=== PATIENT | female | born 1960 | race Caucasian/White ===

== ENCOUNTER 2017-08-14 13:48 | Outpatient (RCR) | payer MEDICAID ==
[~2017-08-14 13:48] MED LIST: CYCL10TA9 PO; DICY10CA26 PO; IBUP800T26 PO; MECL25TA56 PO; NAPR-243 PO; NAPR-915 PO; OXYC-12 PO; PNT40TEC PO; RNT150T PO
[2017-08-14 15:21] LABS: BASOPHILS % (AUTO) 0 % (0-10); EOSINOPHILS # (AUTO) 0.2 10^3/uL (0.0-0.3); EOSINOPHILS % (AUTO) 3 % (0-10); HEMATOCRIT 45 % (35-52); HEMOGLOBIN 14.7 G/DL (11.5-16.0); LYMPHOCYTES # (AUTO) 2.2 X 10^3 (1.0-4.0); LYMPHOCYTES % (AUTO) 25 % (12-44); MEAN CORPUSCULAR HEMOGLOBIN 31 PG (25-34); MEAN CORPUSCULAR HGB CONC 33 G/DL (32-36); MEAN CORPUSCULAR VOLUME 92 FL (80-99); MEAN PLATELET VOLUME 9.8 FL (7.4-10.4); MONOCYTES # (AUTO) 0.7 X 10^3 (0.0-1.0); MONOCYTES % (AUTO) 8 % (0-12); NEUTROPHILS # (AUTO) 5.7 X 10^3 (1.8-7.8); NEUTROPHILS % (AUTO) 65 % (42-75); PLATELET COUNT 313 10^3/uL (130-400); RED BLOOD COUNT 4.82 10^6/uL (4.35-5.85); RED CELL DISTRIBUTION WIDTH 12.9 % (10.0-14.5); WHITE BLOOD COUNT 8.8 10^3/uL (4.3-11.0)
[2017-08-14 15:41] LABS: ALANINE AMINOTRANSFERASE 74 U/L (0-55); ALBUMIN 4.2 GM/DL (3.2-4.5); ALKALINE PHOSPHATASE 102 U/L (40-136); BILIRUBIN,TOTAL 0.4 MG/DL (0.1-1.0); BUN/CREATININE RATIO 18; CALCIUM 8.9 MG/DL (8.5-10.1); CARBON DIOXIDE 27 MMOL/L (21-32); CHLORIDE 105 MMOL/L (98-107); CREATININE SERUM 0.88 MG/DL (0.60-1.30); GFR ESTIMATED > 60; GLUCOSE 127 MG/DL (70-105); POTASSIUM 4.1 MMOL/L (3.6-5.0); SODIUM 141 MMOL/L (135-145); TOTAL PROTEIN 7.5 GM/DL (6.4-8.2)
== END 2017-11-12 | disposition home or self-care (01) ==
LOC: ONC 13:48
PROVIDERS: ATTEND Internal Medicine Hematology & Oncology
DX: Z08 Encounter for follow-up examination after completed treatment for malignant neoplasm (principal); Z85.43 Personal history of malignant neoplasm of ovary; Z85.048 Personal history of other malignant neoplasm of rectum, rectosigmoid junction, and anus; R10.84 Generalized abdominal pain; N18.3 Chronic kidney disease, stage 3 (moderate); K21.9 Gastro-esophageal reflux disease without esophagitis; K44.9 Diaphragmatic hernia without obstruction or gangrene; K75.81 Nonalcoholic steatohepatitis (NASH); K43.9 Ventral hernia without obstruction or gangrene; Z90.710 Acquired absence of both cervix and uterus; Z79.82 Long term (current) use of aspirin; Z79.899 Other long term (current) drug therapy
CPT/HCPCS: 36415; 80053; 85025; 86304; 99213

== ENCOUNTER → 2019-03-22 | Outpatient (CLI) | payer MEDICAID ==
[~2019-03-22] MED LIST changes: +CATHETER FLUSH 10 ML SYR IV PRN; +HOLD METFORMIN - RECEIVED CONTRAST 20 ML VIAL IV SCH; +IOHEXOL 350 MG/ML 100 ML (OMNIPAQUE 350) VIAL IV ONE; +NS 100 ML (IVPB) BAG IV ONE
--- NOTE | 2019-03-22 14:32 | Diagnostic Imaging Report ---
PROCEDURE: CT angiography of the chest with contrast. TECHNIQUE: Multiple contiguous axial images were obtained through the chest after uneventful bolus administration of intravenous contrast. 3D reconstructed CTA MIP acquisitions were also performed. Auto Exposure Controls were utilized during the CT exam to meet ALARA standards for radiation dose reduction. INDICATION: Rectal and ovarian cancer. FINDINGS: The previous CT chest, abdomen, and pelvis exam of 08/18/2017 failed to show any sign of metastatic disease or of an acute abnormality. The images through the thorax on this exam show that the heart is enlarged and that there are sparse coronary artery calcifications evident. The heart does seem stable when compared to the prior exam. The aorta is not abnormally dilated, and there is no sign of a dissection. There is no defect within the pulmonary arteries to indicate a pulmonary embolus. The mild atelectasis involving each lung base seen previously is again evident and no different. The lungs are generally clear. There is no sign of failure, pneumonia, or of a pleural effusion to indicate an acute abnormality. There is no parenchymal lung mass identified either. There is no mediastinal or hilar adenopathy. The thyroid gland is generally unremarkable. There is no obvious breast mass. The images through the abdomen show that the liver is enlarged and of lower density than usually seen. This does suggest fatty metamorphosis. The liver does seem stable when compared to the prior exam. However, it should be noted that the inferior half of the right lobe of the liver is not included on this exam. There is no acute abnormality of the upper abdomen. The bone windows show no evidence for a fracture or for a destructive lesion. IMPRESSION: 1. There is cardiomegaly and mild bibasilar atelectasis/infiltrate. These findings are similar to the prior exam. There is no evidence for an acute cardiopulmonary abnormality. In particular, there is no sign of a pulmonary embolus or of a dissection. 2. There is no evidence for neoplastic disease. Dictated by: Dictated on workstation # [id number]
== END ==
LOC: RAD 13:06
PROVIDERS: ATTEND Nurse Practitioner Family
DX: I51.7 Cardiomegaly (principal); J98.11 Atelectasis; R91.8 Other nonspecific abnormal finding of lung field
CPT/HCPCS: 71275

== ENCOUNTER → 2019-06-01 | Outpatient (CLI) | payer MEDICAID ==
[~2019-06-01] MED LIST changes: -CATHETER FLUSH 10 ML SYR IV PRN; -HOLD METFORMIN - RECEIVED CONTRAST 20 ML VIAL IV SCH; -IOHEXOL 350 MG/ML 100 ML (OMNIPAQUE 350) VIAL IV ONE; -NS 100 ML (IVPB) BAG IV ONE
== END ==
LOC: CARD 12:06
PROVIDERS: ATTEND Nurse Practitioner Family
DX: I42.9 Cardiomyopathy, unspecified (principal)
CPT/HCPCS: 93306

== ENCOUNTER 2019-06-17 10:40 | Outpatient (RCR) | payer MEDICAID ==
[2019-06-17 11:25] LABS: BASOPHILS % (AUTO) 1 % (0-10); EOSINOPHILS # (AUTO) 0.2 10^3/uL (0.0-0.3); EOSINOPHILS % (AUTO) 3 % (0-10); HEMATOCRIT 44 % (35-52); HEMOGLOBIN 14.4 G/DL (11.5-16.0); LYMPHOCYTES # (AUTO) 1.8 X 10^3 (1.0-4.0); LYMPHOCYTES % (AUTO) 25 % (12-44); MEAN CORPUSCULAR HEMOGLOBIN 30 PG (25-34); MEAN CORPUSCULAR HGB CONC 33 G/DL (32-36); MEAN CORPUSCULAR VOLUME 90 FL (80-99); MEAN PLATELET VOLUME 9.8 FL (7.4-10.4); MONOCYTES # (AUTO) 0.5 X 10^3 (0.0-1.0); MONOCYTES % (AUTO) 7 % (0-12); NEUTROPHILS # (AUTO) 4.8 X 10^3 (1.8-7.8); NEUTROPHILS % (AUTO) 65 % (42-75); PLATELET COUNT 276 10^3/uL (130-400); RED CELL DISTRIBUTION WIDTH 12.7 % (10.0-14.5); WHITE BLOOD COUNT 7.4 10^3/uL (4.3-11.0)
[2019-06-17 11:49] LABS: ALANINE AMINOTRANSFERASE 105 U/L (0-55); ALBUMIN 4.2 GM/DL (3.2-4.5); ALKALINE PHOSPHATASE 112 U/L (40-136); BILIRUBIN,TOTAL 0.6 MG/DL (0.1-1.0); BUN/CREATININE RATIO 16; CALCIUM 8.9 MG/DL (8.5-10.1); CARBON DIOXIDE 21 MMOL/L (21-32); CHLORIDE 102 MMOL/L (98-107); CREATININE SERUM 0.88 MG/DL (0.60-1.30); GFR ESTIMATED > 60; GLUCOSE 245 MG/DL (70-105); POTASSIUM 4.3 MMOL/L (3.6-5.0); SODIUM 135 MMOL/L (135-145); TOTAL PROTEIN 7.7 GM/DL (6.4-8.2)
== END 2019-09-15 | disposition home or self-care (01) ==
LOC: ONC 10:40
PROVIDERS: ATTEND Internal Medicine Hematology & Oncology
DX: Z08 Encounter for follow-up examination after completed treatment for malignant neoplasm (principal); Z85.43 Personal history of malignant neoplasm of ovary; Z85.048 Personal history of other malignant neoplasm of rectum, rectosigmoid junction, and anus; N18.3 Chronic kidney disease, stage 3 (moderate); R10.9 Unspecified abdominal pain; K21.9 Gastro-esophageal reflux disease without esophagitis; K43.9 Ventral hernia without obstruction or gangrene; Z79.899 Other long term (current) drug therapy
CPT/HCPCS: 80053; 85025; 86304; 99213

== ENCOUNTER → 2019-06-30 | Outpatient (CLI) | payer MEDICAID ==
--- NOTE | 2019-06-30 10:58 | Diagnostic Imaging Report ---
EXAMINATION: Magnetic resonance imaging of the left knee without intravenous contrast DATE: June 30, 2019. COMPARISON: None. INDICATION: 59-year-old female, left knee pain. Injury in March 2019. TECHNIQUE: Multiplanar, multisequence non contrast enhanced MR imaging was accomplished. FINDINGS: MENISCI: The medial meniscus is intact. The lateral meniscus is intact. LIGAMENTS AND TENDONS: The anterior and posterior cruciate ligaments are intact. There is an high-grade partial tear involving the superficial component of the medial collateral ligament complex. The meniscotibial ligament is intact. The femoral attachment site of the meniscofemoral ligament is not well seen and likely is torn. The iliotibial band, mid third lateral capsular ligament, fibular collateral ligament, biceps femoris tendon and conjoined tendon are intact. The quadriceps tendon and patella ligament are intact. JOINT: The articular cartilage surfaces are intact. There is no knee joint effusion, prominent synovitis, or intra-articular body. BONE: There is unremarkable bone marrow signal. Specifically, negative for fracture, osteomyelitis, osteonecrosis, or marrow replacing process. BURSAE AND SOFT TISSUES: There is no Olguin's cyst. There is nonspecific prepatellar subcutaneous edema. IMPRESSION: 1. Intact menisci and cruciate ligaments. 2. High-grade partial tear involving the superficial component of the medial collateral ligament complex. Probable tear involving the femoral attachment site of the meniscofemoral ligament. 3. No acute fracture or bone contusion. 4. Intact articular cartilage. No knee joint effusion. Dictated by: Dictated on workstation # [id number]
== END ==
LOC: RAD 09:42
PROVIDERS: ATTEND Nurse Practitioner Family
DX: S83.412A Sprain of medial collateral ligament of left knee, initial encounter (principal); R29.6 Repeated falls
CPT/HCPCS: 73721

== ENCOUNTER 2020-04-22 16:28 | Emergency (ER) | payer MEDICAID ==
[~2020-04-22] VITALS: Ht 167 cm; Wt 113.0 kg
[2020-04-22] MEDS ORDERED: ONDANSETRON 4 MG/2 ML (SDV) Z0FRAN ONE (16:40)
[2020-04-22] MEDS: LORazepam INJ 2 MG/ML (ATIVAN) VIAL IVP PRN ×2 (16:50→18:40)
[2020-04-22] MEDS ORDERED: cloNIDine 0.1 MG (CATAPRES) TAB ONE (16:52)
[2020-04-22] MEDS ORDERED: OXYMETAZOLINE (AFRIN) 0.05% NA 30 ML BTL ONE (16:52)
[2020-04-22 16:53] LABS: BASOPHILS # (AUTO) 0.1 10^3/uL (0.0-0.1); BASOPHILS % (AUTO) 0 % (0-10); EOSINOPHILS # (AUTO) 0.2 10^3/uL (0.0-0.3); EOSINOPHILS % (AUTO) 2 % (0-10); HEMATOCRIT 41 % (35-52); HEMOGLOBIN 13.1 g/dL (11.5-16.0); LYMPHOCYTES # (AUTO) 2.8 X 10^3 (1.0-4.0); LYMPHOCYTES % (AUTO) 25 % (12-44); MEAN CORPUSCULAR HEMOGLOBIN 30 pg (25-34); MEAN CORPUSCULAR HGB CONC 32 g/dL (32-36); MEAN CORPUSCULAR VOLUME 92 fL (80-99); MEAN PLATELET VOLUME 9.7 fL (9.0-12.2); MONOCYTES # (AUTO) 0.9 X 10^3 (0.0-1.0); MONOCYTES % (AUTO) 8 % (0-12); NEUTROPHILS # (AUTO) 7.2 X 10^3 (1.8-7.8); NEUTROPHILS % (AUTO) 65 % (42-75); PLATELET COUNT 335 10^3/uL (130-400); WHITE BLOOD COUNT 11.2 10^3/uL (4.3-11.0)
--- NOTE | 2020-04-22 17:05 | ED EENT ---
History of Present Illness General Chief Complaint: Nasal Problems Stated Complaint: NOSEBLEED Nursing Triage Note: C/O NOSE BLEED X 1 HOUR Source: patient Exam Limitations: no limitations History of Present Illness Date Seen by Provider: Apr 22, 2020 Time Seen by Provider: 16:57 Initial Comments ER with right-sided nosebleed for 1 hour. She has never had these before her first episode last week. At that time she was seen at [facility]. No anticoagulation. No recent illness. Timing/Duration: other Severity: severe Location: nose Prearrival Treatment: no prearrival treatment Associated Symptoms: denies symptoms Allergies and Home Medications Allergies Coded Allergies: Sulfa (Sulfonamide Antibiotics) (Unverified Adverse Reaction, Intermediate, nausea, rash, headache, 05/03/12) Home Medications Cyclobenzaprine HCl 10 Mg Tablet, 10 MG PO Q8H Prescribed by: RIKY FALLON on 10/05/152049 Naproxen 500 Mg Tablet, 500 MG PO BID Prescribed by: RIKY FALLON on 10/05/152049 Pantoprazole Sodium 40 Mg Tablet.dr, 1 TAB PO DAILY Prescribed by: SALVADOR SINGLETON on 07/29/13 1515 Patient Home Medication List Home Medication List Reviewed: Yes Review of Systems Review of Systems Constitutional: see HPI Eyes: No Symptoms Reported Ears: No Symptoms Reported Nose: see HPI Mouth: no symptoms reported Respiratory: no symptoms reported Musculoskeletal: no symptoms reported Past Cyerriq-Dfpadl-Rkdcsa Hx Patient Social History Alcohol Use: Denies Use Recreational Drug Use: No Recent Foreign Travel: No Contact w/Someone Who Travel: No Recent Infectious Disease Expo: No Immunizations Up To Date Date of Pneumonia Vaccine: Jan 26, 2010 Past Medical History Surgeries: Yes (HERNIA REPAIR; HYST/BSO; COLON RESECTION FOR RECTAL CANCER) Abdominal, Appendectomy, Gallbladder, Hysterectomy, Oophorectomy Respiratory: No Cardiac: No Neurological: No Reproductive Disorders: Yes (OVARIAN CANCER(TOTAL HYSTERECTOMY)) Sexually Transmitted Disease: No HIV/AIDS: No Gastrointestinal: Yes Abdominal Hernia, Gastroesophageal Reflux, Polyps, Gall Bladder Disease Musculoskeletal: Yes (ARTHRITIS IN NECK AND BACK) Chronic Back Pain Endocrine: No Cancer: Yes Rectal, Cervical, Ovarian Psychosocial: No Integumentary: No Blood Disorders: No Family Medical History Cancer 03 MOTHER Congestive heart failure 03 MOTHER Family history: Arthritis 09 BROTHER 09 SISTER Family history: Cardiovascular disease 03 FATHER Family history: Gastrointestinal disease 09 BROTHER 09 SISTER Physical Exam Vital Signs Vital Signs - First Documented 04/22/20 16:39 Temp 37.0 Pulse 93 Resp 18 B/P (MAP) 174/100 (124) Pulse Ox 97 Height, Weight, BMI Height: 5'6" Weight: 240lbs. oz. [id number]; 40.00 BMI Method:Stated General Appearance: WD/WN, no apparent distress Eyes: bilateral eye normal inspection, bilateral eye PERRL, bilateral eye EOMI Ears: bilateral ear auricle normal, bilateral ear canal normal, bilateral ear TM normal Nose: active bleeding Mouth/Throat: normal mouth inspection, other (Active blood going down the oropharynx) Neck: non-tender, full range of motion Gastrointestinal: normal bowel sounds, non tender Neurologic/Psychiatric: alert, normal mood/affect, oriented x 3 Progress/Results/Core Measures Results/Orders Lab Results Laboratory Tests Test 04/22/20 16:45 Range/Units White Blood Count 11.2 H 4.3-11.0 10^3/uL Red Blood Count 4.40 3.80-5.11 10^6/uL Hemoglobin 13.1 11.5-16.0 g/dL Hematocrit 41 35-52 % Mean Corpuscular Volume 92 80-99 fL Mean Corpuscular Hemoglobin 30 25-34 pg Mean Corpuscular Hemoglobin Concent 32 32-36 g/dL Red Cell Distribution Width 13.2 10.0-14.5 % Platelet Count 335 130-400 10^3/uL Mean Platelet Volume 9.7 9.0-12.2 fL Immature Granulocyte % (Auto) 0 % Neutrophils (%) (Auto) 65 42-75 % Lymphocytes (%) (Auto) 25 12-44 % Monocytes (%) (Auto) 8 0-12 % Eosinophils (%) (Auto) 2 0-10 % Basophils (%) (Auto) 0 0-10 % Neutrophils # (Auto) 7.2 1.8-7.8 X 10^3 Lymphocytes # (Auto) 2.8 1.0-4.0 X 10^3 Monocytes # (Auto) 0.9 0.0-1.0 X 10^3 Eosinophils # (Auto) 0.2 0.0-0.3 10^3/uL Basophils # (Auto) 0.1 0.0-0.1 10^3/uL Immature Granulocyte # (Auto) 0.0 0.0-0.1 10^3/uL My Orders Orders - THANG FLORES CASH REGISTER SERVICER Cbc With Automated Diff (04/22/20 16:39) Ed Iv/Invasive Line Start (04/22/20 16:39) Lorazepam Injection (Ativan Injection) (04/22/20 16:45) Ondansetron Injection (Zofran Injectio (04/22/20 16:40) Oxymetazoline 0.05% Nasal [place] (Afrin 0. (04/22/20 16:52) Clonidine Tablet (Catapres Tablet) (04/22/20 16:52) Lorazepam Injection (Ativan Injection) (04/22/20 18:30) Carvedilol Tablet (Coreg Tablet) (04/22/20 18:30) Medications Given in ED Current Medications Medications Dose Ordered Sig/Chilo Route Start Time Stop Time Status Last Admin Dose Admin Carvedilol 12.5 mg ONCE ONCE PO 04/22/20 18:30 04/22/20 18:31 DC 04/22/20 18:45 12.5 MG Lorazepam 0.5 mg ONCE PRN IVP 04/22/20 16:45 04/22/20 18:40 0.5 MG Ondansetron HCl 4 mg STK-MED ONCE .ROUTE 04/22/20 16:40 04/22/20 16:43 DC 04/22/20 16:50 4 MG Oxymetazoline HCl 30 ml STK-MED ONCE .ROUTE 04/22/20 16:52 04/22/20 16:55 DC 04/22/20 16:55 30 ML Vital Signs/I&O 04/22/20 16:39 Temp 37.0 Pulse 93 Resp 18 B/P (MAP) 174/100 (124) Pulse Ox 97 Blood Pressure Mean: 124 Departure Communication (Admissions) 1659-on arrival by EMS she had a copious amount of blood pulsatile in nature coming from the right nostril. Suction had difficulty keeping up with the volume of blood. Proceeded with a 5.5 cm Rhino Rocket placement. However, 5 minutes after this blood was still going rather briskly down the oropharynx. Decided to remove the rapid Rhino for the sake of replacing it with a Barrera catheter so that we could inflate a balloon in the oropharynx and then packed the anterior nose to tamponade the bleed. However after removing the rapid Rhino the bleeding had nearly stopped over the course of about 2 or 3 minutes. Decided to just observe. At this time she is not actively bleeding. 1826-still no bleeding from the mouth or in the oropharynx. Ill watch her for another 2 hours. I updated her daughter. Current blood pressure 127/90. 2011-Still no bblood from either nare nor is there blood in the oropharynx. Impression Primary Impression: Acute posterior epistaxis Disposition: HOME, SELF-CARE Condition: Stable Departure-Patient Inst. Decision time for Depature: 20:10 Referrals: YOSELIN OLGUIN MD NO,LOCAL PHYSICIAN (PCP) Primary Care Physician Patient Instructions: Nosebleeds Add. Discharge Instructions: 1. Do not blow your nose for the next 7 days. If the nosebleed returns then spray the Afrin up the nose and pinch the nose tightly for 20 minutes. Lean forward while doing that. If that fails to control the bleeding then you need to come to the emergency room. Call Dr. Olguin on Friday morning to request an appointment to be seen as soon as they can see you. All discharge instructions reviewed with patient and/or family. Voiced understanding. Copy Copies To 1: YOSELIN OLGUIN MD, PETER J APRN Apr 22, 2020 17:05
[2020-04-22] MEDS ORDERED: LORazepam INJ 2 MG/ML (ATIVAN) VIAL IVP PRN (18:30)
[2020-04-22] MEDS ORDERED: CARVEDILOL 12.5 MG (COREG) TABLET PO ONE (18:30)
[2020-04-22 20:20] VITALS: BP 139/73
== END 2020-04-22 20:20 | disposition home or self-care (01) ==
LOC: EDUNIT# 16:28 → ER 16:31
DX: R04.0 Epistaxis (principal); K21.9 Gastro-esophageal reflux disease without esophagitis; Z82.61 Family history of arthritis; Z82.49 Family history of ischemic heart disease and other diseases of the circulatory system; Z80.9 Family history of malignant neoplasm, unspecified; Z85.048 Personal history of other malignant neoplasm of rectum, rectosigmoid junction, and anus; Z85.43 Personal history of malignant neoplasm of ovary; Z85.41 Personal history of malignant neoplasm of cervix uteri; Z88.2 Allergy status to sulfonamides
CPT/HCPCS: 36415; 85025

== ENCOUNTER 2020-04-26 14:14 | Outpatient (RCR) | payer MEDICAID ==
[~2020-04-26] VITALS: Ht 167 cm; Wt 112.7 kg
[2020-04-27] MEDS ORDERED: MELO15TA39 PO (07:25)
[2020-04-27] MEDS ORDERED: INSU100V6 SQ (07:25)
[2020-04-27] MEDS ORDERED: CARV25TA PO (07:25)
[2020-04-27] MEDS ORDERED: DICY10CA12 PO (07:25)
[2020-04-27] MEDS ORDERED: GLIM4TAB5 PO (07:25)
[2020-04-27] MEDS ORDERED: DULA0.75 SQ (07:25)
[2020-04-27] MEDS ORDERED: ACHD5005 PO (10:06)
[2020-04-27] MEDS ORDERED: AMOX-355 PO (10:06)
== END 2020-04-26 14:31 | disposition home or self-care (01) ==
LOC: PREOP 14:14
PROVIDERS: ATTEND Otolaryngology Otolaryngology/Facial Plastic Surgery
DX: Z01.812 Encounter for preprocedural laboratory examination (principal); R04.0 Epistaxis
CPT/HCPCS: 93005

== ENCOUNTER 2020-04-27 06:29 | Day surgery (SDC) | payer MEDICAID ==
[~2020-04-27] VITALS: Ht 167 cm; Wt 112.0 kg
[2020-04-27] VITALS (11 sets, daily range): BP systolic 123–173; BP diastolic 71–99
[2020-04-27] MEDS ORDERED: LIDOCAINE/EPI 1%-1:100,000 (XYLOCAINE) 50 ML ONE (07:10)
[2020-04-27] MEDS ORDERED: MUPIROCIN 2% OINT 22 GM (BACTROBAN) TUBE ONE (07:10)
[2020-04-27] MEDS ORDERED: PHENYLEPHRINE 0.5% NASAL SPR (NEO-SYNEPHRINE) REG ONE (07:10)
[2020-04-27] MEDS ORDERED: COCAINE HCL 4% 2 ML SYR ONE (07:10)
[2020-04-27] MEDS ORDERED: CARV25TA PO (07:25)
[2020-04-27] MEDS ORDERED: INSU100V6 SQ (07:25)
[2020-04-27] MEDS ORDERED: MELO15TA39 PO (07:25)
[2020-04-27] MEDS ORDERED: DICY10CA12 PO (07:25)
[2020-04-27] MEDS ORDERED: DULA0.75 SQ (07:25)
[2020-04-27] MEDS ORDERED: GLIM4TAB5 PO (07:25)
[2020-04-27] MEDS ORDERED: LACTATED RINGERS 1,000 ML IV PRN (07:30)
[2020-04-27 07:33] LABS: BASOPHILS # (AUTO) 0.1 10^3/uL (0.0-0.1); BASOPHILS % (AUTO) 1 % (0-10); EOSINOPHILS # (AUTO) 0.2 10^3/uL (0.0-0.3); EOSINOPHILS % (AUTO) 2 % (0-10); HEMATOCRIT 39 % (35-52); LYMPHOCYTES # (AUTO) 1.7 10^3/uL (1.0-4.0); LYMPHOCYTES % (AUTO) 18 % (12-44); MEAN CORPUSCULAR HEMOGLOBIN 30 pg (25-34); MEAN CORPUSCULAR HGB CONC 33 g/dL (32-36); MEAN CORPUSCULAR VOLUME 91 fL (80-99); MEAN PLATELET VOLUME 9.8 fL (9.0-12.2); MONOCYTES # (AUTO) 0.7 10^3/uL (0.0-1.0); MONOCYTES % (AUTO) 7 % (0-12); NEUTROPHILS # (AUTO) 6.8 10^3/uL (1.8-7.8); NEUTROPHILS % (AUTO) 72 % (42-75); PLATELET COUNT 355 10^3/uL (130-400); WHITE BLOOD COUNT 9.5 10^3/uL (4.3-11.0)
--- NOTE | 2020-04-27 07:41 | Progress Note-Pre Operative ---
Pre-Operative Progress Note H&P Reviewed The H&P was reviewed, patient examined and no changes noted. Date Seen by Provider: Apr 27, 2020 Time Seen by Provider: 07:30 Date H&P Reviewed: Apr 27, 2020 Time H&P Reviewed: 07:30 Pre-Operative Diagnosis: Recurrent Right Epistaxis YOSELIN VIGIL MD Apr 27, 2020 07:41
[2020-04-27 07:46] LABS: BUN/CREATININE RATIO 17; CALCIUM 8.7 MG/DL (8.5-10.1); CARBON DIOXIDE 23 MMOL/L (21-32); CHLORIDE 105 MMOL/L (98-107); CREATININE SERUM 0.83 MG/DL (0.60-1.30); GFR ESTIMATED > 60; GLUCOSE 139 MG/DL (70-105); POTASSIUM 3.6 MMOL/L (3.6-5.0); SODIUM 138 MMOL/L (135-145)
[2020-04-27] MEDS ORDERED: proPOfol 200 MG/20 ML (DIPRIVAN) VIAL IV ONE (08:02)
[2020-04-27] MEDS ORDERED: LIDOCAINE PF 2% 5 ML (XYLOCAINE) VIAL ONE (08:02)
[2020-04-27] MEDS ORDERED: SEVOFLURANE (ULTANE) 15 ML INHAL SOLN ONE (08:02)
[2020-04-27] MEDS ORDERED: fentaNYL INJECTION 100 MCG/2 ML AMP ONE (08:03)
[2020-04-27] MEDS ORDERED: MIDAZOLAM 2 MG/2 ML (VERSED) VIAL ONE (08:03)
[2020-04-27] MEDS ORDERED: SUCCINYLCHOLINE INJ 100 MG/5 ML SYR/VIAL ONE (08:12)
[2020-04-27] MEDS ORDERED: ONDANSETRON 4 MG/2 ML (SDV) Z0FRAN ONE (08:13)
--- NOTE | 2020-04-27 08:40 | Progress Note-Post Operative ---
Post-Operative Progess Note Surgeon (s)/Air Conditioning Unit Tester (s) Surgeon YOSELIN VIGIL MD Air Conditioning Unit Tester n/a Pre-Operative Diagnosis Recurrent Right Epistaxis Post-Operative Diagnosis same Post-Op Procedure Note Date of Procedure: Apr 27, 2020 Name of Procedure Performed: Endoscopic Repair of Right Epistaxis Description & Findings Description and Findings: n/a Anesthesia Type get Estimated Blood Loss minimal Packing none. Specimen(s) collected/removed none YOSELIN VIGIL MD Apr 27, 2020 08:40
[2020-04-27] MEDS ORDERED: D5 1/2 NS W/KCL 20 MEQ/L 1,000 ML IV SCH (08:45)
[2020-04-27] MEDS ORDERED: HYDROcodone/APAP 5 MG/325 MG (LORTAB) TAB PO PRN ×2 (08:45)
[2020-04-27] MEDS ORDERED: ACETAMINOPHEN 500 MG TAB (TYLENOL) PO PRN (08:45)
[2020-04-27] MEDS ORDERED: PHENYLEPHRINE 0.5% NASAL SPR (NEO-SYNEPHRINE) REG PRN (08:45)
--- NOTE | 2020-04-27 08:52 | Anesthesia-General Post-Op ---
General Patient Condition Mental Status/LOC: Same as Preop Cardiovascular: Satisfactory Nausea/Vomiting: Absent Respiratory: Satisfactory Pain: Controlled Complications: Absent Post Op Complications Complications None Follow Up Care/Instructions Patient Instructions None needed. Anesthesia/Patient Condition Patient Condition Patient is doing well, no complaints, stable vital signs, no apparent adverse anesthesia problems. No complications reported per nursing. DOUGLAS WALSH CRNA Apr 27, 2020 08:52
[2020-04-27] MEDS ORDERED: morphine INJ 10 MG/ML 1ML (SYR OR VIAL) IVP ONE (09:00)
[2020-04-27] MEDS ORDERED: fentaNYL INJECTION 100 MCG/2 ML AMP IVP ONE (09:00)
[2020-04-27] MEDS ORDERED: MEPERIDINE (DEMEROL) INJ 50 MG/ML IVP ONE (09:00)
[2020-04-27] MEDS ORDERED: ONDANSETRON 4 MG/2 ML (SDV) Z0FRAN IVP PRN (09:00)
[2020-04-27] MEDS ORDERED: ACHD5005 PO (10:06)
[2020-04-27] MEDS ORDERED: AMOX-355 PO (10:06)
== END 2020-04-27 11:00 ==
LOC: SDC 06:29
PROVIDERS: ATTEND Otolaryngology Otolaryngology/Facial Plastic Surgery
DX: R04.0 Epistaxis (principal); K21.9 Gastro-esophageal reflux disease without esophagitis; E66.9 Obesity, unspecified; M19.90 Unspecified osteoarthritis, unspecified site; Z68.41 Body mass index [BMI] 40.0-44.9, adult; Z79.899 Other long term (current) drug therapy; Z88.2 Allergy status to sulfonamides; Z91.041 Radiographic dye allergy status; Z20.828 Contact with and (suspected) exposure to other viral communicable diseases
CPT/HCPCS: 31238; 80048; 82962; 85025; 87081; U0002; 36415; 87635

== ENCOUNTER 2020-12-25 18:48 | Inpatient (IN) | payer MEDICAID ==
[~2020-12-25] VITALS: Ht 165.1 cm; Wt 117.2 kg
[~2020-12-25 18:48] MED LIST changes: +ACHD5005 PO; +AMOX-355 PO; +CARV25TA PO; +DICY10CA12 PO; +DULA0.75 SC; +GLIM4TAB5 PO; +INSU100V6 SQ; +MELO15TA39 PO
--- NOTE | 2020-12-25 19:13 | ED Respiratory ---
General Chief Complaint: Respiratory Problems Stated Complaint: WEAKNESS, N/V/D, HEADACHE,COUGH Nursing Triage Note: PT BROUGHT IN BY [facility] FROM HOME WITH COMPLAINT OF COUGH, FEVER, MA, SOA, N/V/D. STATES SHE HAS TWO FAMILY MEMBERS IN ICU COVID + ON THE VENTILATOR. STATES SYMPTOMS STARTED 12/15/2020. DENIES BEING VACCINATED. PT WAS 89% RA ON EMS ARRIVAL. STATES SHE CANNOT BE SWABBED DUE TO HAVING RECENT NASAL SURGERY. Source: patient Exam Limitations: no limitations History of Present Illness Date Seen by Provider: Dec 25, 2020 Time Seen by Provider: 19:45 Initial Comments To Er by ems with c/o epigastric pain, nausea, diarrhea, cough,SOA. Symptoms started 12/15. She's unvaccinated against covid. Her household contacts--daughter and ex---are both in ICU one on Bipap and one on Ventilator for Covid she states. SHe also had surgical cauterization of epistaxis 1 month ago and was told not to have covid swab. Timing/Duration: getting worse, other Severity: moderate Prior Episodes/Possible Cause: no prior episodes Associated Symptoms: cough, shortness of breath Allergies and Home Medications Allergies Coded Allergies: Iodinated Contrast Media (Verified Allergy, Mild, N/V, 04/27/20) Sulfa (Sulfonamide Antibiotics) (Verified Allergy, Mild, nausea, rash, headache, 04/27/20) Home Medications Amoxicillin/Potassium Clav 1 Each Tablet, 1 EACH PO BID Prescribed by: MATY MELTON on 04/27/20 1006 Carvedilol 25 Mg Tablet, 25 MG PO BID, (Reported) Cyclobenzaprine HCl 10 Mg Tablet, 10 MG PO Q8H Prescribed by: RIKY FALLON on 10/05/152049 Hydrocodone/Acetaminophen 1 Each Tablet, 1 EACH PO Q4H PRN for PAIN-SEVERE (8- 10) Prescribed by: MATY MELTON on 04/27/20 1006 Naproxen 500 Mg Tablet, 500 MG PO BID Prescribed by: RIKY FALLON on 10/05/152049 Pantoprazole Sodium 40 Mg Tablet., 1 TAB PO DAILY Prescribed by: SALVADOR SINGLETON on 07/29/13 1515 Patient Home Medication List Home Medication List Reviewed: Yes Review of Systems Review of Systems Constitutional: see HPI EENTM: see HPI Respiratory: see HPI, cough Cardiovascular: no symptoms reported Genitourinary: no symptoms reported Musculoskeletal: no symptoms reported Psychiatric/Neurological: No Symptoms Reported Hematologic/Lymphatic: No Symptoms Reported Immunological/Allergic: no symptoms reported Past Habtxib-Wuthsi-Xafwqn Hx Seasonal Allergies Seasonal Allergies: No Past Medical History Surgeries: Yes (RECTAL, UMBILICAL HERNIA REPAIR) Appendectomy, Gallbladder, Hysterectomy, Oophorectomy Respiratory: No Currently Using CPAP: No Currently Using BIPAP: No Cardiac: Yes High Cholesterol, Hypertension Neurological: No Reproductive Disorders: Yes (OVARIAN CANCER(TOTAL HYSTERECTOMY)) Sexually Transmitted Disease: No HIV/AIDS: No Genitourinary: No Gastrointestinal: Yes Gastroesophageal Reflux, Chronic Diarrhea, Irritable Bowel Musculoskeletal: Yes Arthritis, Chronic Back Pain Endocrine: Yes Diabetes, Non-Insulin dep HEENT: Yes (GLASSES) Loss of Vision: Denies Hearing Impairment: Denies Cancer: Yes Rectal, Ovarian Did You Recieve Any Treatments: Yes What Type of Treatment Did You: Surgical Intervention Psychosocial: Yes (HX) Anxiety, Depression Integumentary: No Blood Disorders: No Adverse Reaction/Blood Tranf: No Family Medical History Cancer 03 MOTHER Congestive heart failure 03 MOTHER Family history: Arthritis 09 BROTHER 09 SISTER Family history: Cardiovascular disease 03 FATHER Family history: Gastrointestinal disease 09 BROTHER 09 SISTER Physical Exam Vital Signs - First Documented 12/25/20 18:50 Temp 38.2 Pulse 97 Resp 28 B/P (MAP) 155/89 (111) Pulse Ox 95 O2 Delivery Nasal Cannula O2 Flow Rate 3.00 Capillary Refill : Height: 5'6" Weight: 240lbs. oz. 108.927150rh; 36.00 BMI Method:Stated General Appearance: WD/WN, no apparent distress, obese, other (89% on room air, 94% on 3L. ) Eyes: Bilateral Eye Normal Inspection, Bilateral Eye PERRL, Bilateral Eye EOMI HEENT: PERRL/EOMI Neck: non-tender, full range of motion Respiratory: no respiratory distress, no accessory muscle use Cardiovascular: regular rate, rhythm, no murmur Gastrointestinal: normal bowel sounds, non tender Extremities: normal range of motion, non-tender Neurologic/Psychiatric: alert, normal mood/affect, oriented x 3 Skin: normal color, warm/dry Progress/Results/Core Measures Suspected Sepsis SIRS Temperature: Pulse: 97 Respiratory Rate: 28 Laboratory Tests 12/25/20 19:08: White Blood Count 5.9 Blood Pressure 155 /89 Mean: 111 Laboratory Tests 12/25/20 19:08: Creatinine 0.88, Platelet Count 315, Total Bilirubin 0.7 Results/Orders Lab Results Laboratory Tests Test 12/25/20 19:08 Range/Units White Blood Count 5.9 4.3-11.0 10^3/uL Red Blood Count 4.83 3.80-5.11 10^6/uL Hemoglobin 14.4 11.5-16.0 g/dL Hematocrit 44 35-52 % Mean Corpuscular Volume 92 80-99 fL Mean Corpuscular Hemoglobin 30 25-34 pg Mean Corpuscular Hemoglobin Concent 33 32-36 g/dL Red Cell Distribution Width 13.1 10.0-14.5 % Platelet Count 315 130-400 10^3/uL Mean Platelet Volume 10.0 9.0-12.2 fL Immature Granulocyte % (Auto) 0 % Neutrophils (%) (Auto) 70 42-75 % Lymphocytes (%) (Auto) 22 12-44 % Monocytes (%) (Auto) 8 0-12 % Eosinophils (%) (Auto) 0 0-10 % Basophils (%) (Auto) 0 0-10 % Neutrophils # (Auto) 4.1 1.8-7.8 10^3/uL Lymphocytes # (Auto) 1.3 1.0-4.0 10^3/uL Monocytes # (Auto) 0.5 0.0-1.0 10^3/uL Eosinophils # (Auto) 0.0 0.0-0.3 10^3/uL Basophils # (Auto) 0.0 0.0-0.1 10^3/uL Immature Granulocyte # (Auto) 0.0 0.0-0.1 10^3/uL D-Dimer 0.77 H 0.00-0.49 UG/ML Sodium Level 138 135-145 MMOL/L Potassium Level 4.1 3.6-5.0 MMOL/L Chloride Level 101 98-107 MMOL/L Carbon Dioxide Level 24 21-32 MMOL/L Anion Gap 13 5-14 MMOL/L Blood Urea Nitrogen 11 7-18 MG/DL Creatinine 0.88 0.60-1.30 MG/DL Estimat Glomerular Filtration Rate 66 BUN/Creatinine Ratio 13 Glucose Level 174 H 70-105 MG/DL Calcium Level 8.3 L 8.5-10.1 MG/DL Corrected Calcium 8.8 8.5-10.1 MG/DL Total Bilirubin 0.7 0.1-1.0 MG/DL Aspartate Amino Transf (AST/SGOT) 123 H 5-34 U/L Alanine Aminotransferase (ALT/SGPT) 57 H 0-55 U/L Alkaline Phosphatase 112 40-136 U/L C-Reactive Protein High Sensitivity 11.11 H 0.00-0.50 MG/DL Total Protein 7.3 6.4-8.2 GM/DL Albumin 3.4 3.2-4.5 GM/DL Lipase 47 8-78 U/L Procalcitonin 0.10 H <0.10 NG/ML My Orders Orders - THANG FLORES APRN Covid 19 Inhouse Test (12/25/20 19:00) Chest 1 View, Ap/Pa Only (12/25/20 19:06) Cbc With Automated Diff (12/25/20 19:06) Comprehensive Metabolic Panel (12/25/20 19:06) Fibrin Degradation Products (12/25/20 19:06) Hs C Reactive Protein (12/25/20 19:06) Procalcitonin (Pct) (12/25/20 19:06) Ed Iv/Invasive Line Start (12/25/20 19:06) Lipase (12/25/20 20:08) Ct [place] Chest/Noang Abd-Pelv W (12/25/20 20:08) Fentanyl Inj (Sublimaze Injection) (12/25/20 20:15) Ibuprofen Tablet (Motrin Tablet) (12/25/20 20:15) Ondansetron Injection (Zofran Injectio (12/25/20 20:30) Iohexol Injection (Omnipaque 350 Mg/Ml 1 (12/25/20 21:15) Received Contrast (Hold Metformin- Contr (12/25/20 21:15) Ns (Ivpb) (Sodium Chloride 0.9% Ivpb Bag (12/25/20 21:15) Medications Given in ED Current Medications Medications Dose Ordered Sig/Chilo Route Start Time Stop Time Status Last Admin Dose Admin Fentanyl Citrate 50 mcg ONCE ONCE IVP 12/25/20 20:15 12/25/20 20:16 DC 12/25/20 20:18 50 MCG Ibuprofen 800 mg ONCE ONCE PO 12/25/20 20:15 12/25/20 20:16 DC 12/25/20 20:18 800 MG Iohexol 100 ml ONCE ONCE IV 12/25/20 21:15 12/25/20 21:16 DC 12/25/20 21:05 90 ML Ondansetron HCl 8 mg ONCE ONCE IVP 12/25/20 20:30 12/25/20 20:31 DC 12/25/20 20:29 8 MG Sodium Chloride 100 ml ONCE ONCE IV 12/25/20 21:15 12/25/20 21:16 DC 12/25/20 21:05 80 ML Vital Signs/I&O 12/25/20 12/25/20 18:50 20:18 Temp 38.2 38.2 Pulse 97 Resp 28 B/P (MAP) 155/89 (111) Pulse Ox 95 O2 Delivery Nasal Cannula O2 Flow Rate 3.00 Capillary Refill : Blood Pressure Mean: 111 Departure Communication (Admissions) NAME: FELICIA CAPELLAN [facility] REC#: [id number] PT STATUS: REG ER : 1960 PHYSICIAN: THANG FLORES APRN ADMIT DATE: 12/25/20/ER Draft Date of Exam:12/25/20 CHEST 1 VIEW, AP/PA ONLY INDICATION: Covid COMPARISON: 10/05/2015 TECHNIQUE: Single radiograph of the chest dated 12/25/2020 FINDINGS: The cardiac silhouette is enlarged, increased from the prior examination. Minimal central pulmonary vascular congestion. Extensive mixed interstitial and airspace opacities are identified bilaterally, greatest within the mid and lower lungs. No large-volume pleural effusion. No pneumothorax. No acute osseous abnormality. IMPRESSION: Extensive bilateral pulmonary infiltrates, concerning for an infectious etiology such as Covid. Edema would be an additional consideration given underlying cardiomegaly and minimal central pulmonary vascular congestion. Dictated on workstation # [id number] Dict: 12/25/201935 Trans: 12/25/201943 [facility] [id number] Interpreted by: MERA BAUMANN MD Electronically signed by: Impression Primary Impression: COVID-19 Additional Impression: Hypoxia Disposition: ADMITTED INPATIENT Condition: Stable Admissions Decision to Admit Reason: Admit from ER (General) Decision to Admit/Date: Dec 25, 2020 Time/Decision to Admit Time: 20:22 Departure-Patient Inst. Referrals: CHRISTIANO LYNN APRN (PCP/Family) Primary Care Physician THANG FLORES APRN Dec 25, 2020 19:13
[2020-12-25 19:20] LABS: BASOPHILS % (AUTO) 0 % (0-10); EOSINOPHILS % (AUTO) 0 % (0-10); HEMATOCRIT 44 % (35-52); HEMOGLOBIN 14.4 g/dL (11.5-16.0); LYMPHOCYTES # (AUTO) 1.3 10^3/uL (1.0-4.0); LYMPHOCYTES % (AUTO) 22 % (12-44); MEAN CORPUSCULAR HEMOGLOBIN 30 pg (25-34); MEAN CORPUSCULAR HGB CONC 33 g/dL (32-36); MEAN CORPUSCULAR VOLUME 92 fL (80-99); MONOCYTES # (AUTO) 0.5 10^3/uL (0.0-1.0); MONOCYTES % (AUTO) 8 % (0-12); NEUTROPHILS # (AUTO) 4.1 10^3/uL (1.8-7.8); NEUTROPHILS % (AUTO) 70 % (42-75); PLATELET COUNT 315 10^3/uL (130-400); WHITE BLOOD COUNT 5.9 10^3/uL (4.3-11.0)
--- NOTE | 2020-12-25 19:44 | Diagnostic Imaging Report ---
INDICATION: Covid COMPARISON: 10/05/2015 TECHNIQUE: Single radiograph of the chest dated 12/25/2020 FINDINGS: The cardiac silhouette is enlarged, increased from the prior examination. Minimal central pulmonary vascular congestion. Extensive mixed interstitial and airspace opacities are identified bilaterally, greatest within the mid and lower lungs. No large-volume pleural effusion. No pneumothorax. No acute osseous abnormality. IMPRESSION: Extensive bilateral pulmonary infiltrates, concerning for an infectious etiology such as Covid. Edema would be an additional consideration given underlying cardiomegaly and minimal central pulmonary vascular congestion. Dictated by: Dictated on workstation # [id number]
[2020-12-25 19:49] LABS: ALBUMIN 3.4 GM/DL (3.2-4.5); BILIRUBIN,TOTAL 0.7 MG/DL (0.1-1.0); CALCIUM 8.3 MG/DL (8.5-10.1); CREATININE SERUM 0.88 MG/DL (0.60-1.30); POTASSIUM 4.1 MMOL/L (3.6-5.0); TOTAL PROTEIN 7.3 GM/DL (6.4-8.2)
[2020-12-25] MEDS ORDERED: IBUPROFEN 800 MG (MOTRIN) TAB PO ONE (20:15)
[2020-12-25] MEDS ORDERED: fentaNYL INJ 100 MCG/2 ML AMP IVP ONE (20:15)
[2020-12-25] MEDS ORDERED: ONDANSETRON 4 MG/2 ML (SDV) Z0FRAN IVP ONE (20:30)
[2020-12-25] MEDS: HOLD METFORMIN - RECEIVED CONTRAST 20 ML VIAL IV SCH (21:05)
[2020-12-25] MEDS ORDERED: IOHEXOL 350 MG/ML 100 ML (OMNIPAQUE 350) VIAL IV ONE (21:15)
[2020-12-25] MEDS ORDERED: NS 100 ML (IVPB) BAG IV ONE (21:15)
--- NOTE | 2020-12-25 21:29 | Diagnostic Imaging Report ---
INDICATION: epigastric pain soa CTA chest, abdomen and pelvis Thin axial sections through the chest, abdomen and pelvis are obtained following intravenous contrast bolus. Multiplanar MIP images were reconstructed and reviewed. All CT scans use one or more of the following dose optimizing techniques: automated exposure control, MA and/or KvP adjustment based on patient size and exam type or iterative reconstruction. COMPARISON: 03/22/2019 and 08/18/2017 FINDINGS: Bilateral hilar and mediastinal adenopathy has developed since the prior examination. In particular, right hilar conglomerate adenopathy measures up to 3.3 x 2.0 cm. No aneurysmal dilatation or dissection of the thoracic aorta. The heart is mildly enlarged. No significant pericardial effusion. No significant pleural effusion. Extensive reticular, groundglass, and dense consolidations are identified throughout the lungs bilaterally. The trachea is patent. No pneumothorax. No significant filling defect within the central or segmental pulmonary arteries. Mild scattered osseous degenerative changes without acute osseous abnormality within the chest. Cholecystectomy. Evidence of a prior ventral abdominal wall hernia repair with mesh tacks in place. Small hiatal hernia. The liver is unremarkable. The spleen is unremarkable. The adrenal glands are unremarkable. The pancreas is unremarkable. The kidneys and bilateral ureters are unremarkable. No aneurysmal dilatation of the abdominal aorta. No evidence of acute appendicitis. The urinary bladder is unremarkable. The uterus is not visualized, likely surgically absent. No abnormal adnexal mass lesion. No bowel obstruction or pneumatosis. Circumaortic left renal vein. No significant adenopathy, free air, or free fluid within the abdomen or pelvis. No acute osseous abnormality with mild scattered osseous degenerative changes present. IMPRESSION: No significant pulmonary embolus. Extensive bilateral pulmonary infiltrates with associated adenopathy within the chest. Findings are favored to relate to an infectious infiltrate with associated reactive adenopathy. Recommend clinical correlation. Additionally, radiographic follow-up is recommended to ensure resolution. Postsurgical changes noted within the abdomen and pelvis without acute abnormality within the abdomen and pelvis. Additional findings as above. Dictated by: Dictated on workstation # [id number]
[2020-12-25] MEDS ORDERED: ACETAMINOPHEN 325 MG TABLET PO PRN (22:15)
[2020-12-25] MEDS ORDERED: IBUPROFEN 600 MG (MOTRIN) TAB PO PRN (22:15)
[2020-12-25] MEDS ORDERED: ONDANSETRON 4 MG/2 ML (SDV) Z0FRAN IVP PRN (22:15)
[2020-12-25 22:21] VITALS: BP 147/70
[2020-12-25] MEDS: LACTATED RINGERS 1,000 ML IV SCH (22:43)
[2020-12-25] MEDS: HYDROcodone/APAP 5 MG/325 MG (LORTAB) TAB PO PRN (22:49)
[2020-12-26] VITALS (7 sets, daily range): BP systolic 137–165; BP diastolic 78–96
[2020-12-26] MEDS ORDERED: RT-ALBUTEROL HFA 8.5 GM INHALER IH PRN (00:30)
[2020-12-26] MEDS: RT-ALBUTEROL HFA 8.5 GM INHALER IH SCH ×4 (02:39→21:10)
[2020-12-26] MEDS: HYDROcodone/APAP 5 MG/325 MG (LORTAB) TAB PO PRN ×2 (05:41→14:53)
[2020-12-26] MEDS: inSUlin ASPART (NovoLOG) 1 UNIT/0.01 ML (CHARGE PER UNIT) SC SCH ×4 (05:42→21:53)
[2020-12-26] MEDS: dexAMETHasone 6 MG TAB (DECADRON) PO SCH (05:42)
[2020-12-26 06:10] LABS: BASOPHILS % (AUTO) 0 % (0-10); EOSINOPHILS # (AUTO) 0.1 10^3/uL (0.0-0.3); EOSINOPHILS % (AUTO) 1 % (0-10); HEMATOCRIT 41 % (35-52); HEMOGLOBIN 12.8 g/dL (11.5-16.0); LYMPHOCYTES # (AUTO) 1.2 10^3/uL (1.0-4.0); LYMPHOCYTES % (AUTO) 21 % (12-44); MEAN CORPUSCULAR HEMOGLOBIN 30 pg (25-34); MEAN CORPUSCULAR HGB CONC 31 g/dL (32-36); MEAN CORPUSCULAR VOLUME 94 fL (80-99); MEAN PLATELET VOLUME 10.2 fL (9.0-12.2); MONOCYTES # (AUTO) 0.5 10^3/uL (0.0-1.0); MONOCYTES % (AUTO) 9 % (0-12); NEUTROPHILS # (AUTO) 3.7 10^3/uL (1.8-7.8); NEUTROPHILS % (AUTO) 68 % (42-75); PLATELET COUNT 307 10^3/uL (130-400); WHITE BLOOD COUNT 5.5 10^3/uL (4.3-11.0)
[2020-12-26 06:21] LABS: POTASSIUM 3.3 MMOL/L (3.6-5.0)
[2020-12-26 06:23] LABS: CALCIUM 7.7 MG/DL (8.5-10.1)
[2020-12-26 06:27] LABS: CREATININE SERUM 0.86 MG/DL (0.60-1.30)
[2020-12-26] MEDS: ENOXAPARIN 40 MG/0.4 ML (LOVENOX) SYR SC SCH (09:03)
[2020-12-26] MEDS: LACTATED RINGERS 1,000 ML IV SCH (11:28)
[2020-12-26] MEDS ORDERED: CYCL10TA9 PO (11:38)
[2020-12-26] MEDS ORDERED: IBUP-2473 PO (11:38)
[2020-12-26] MEDS ORDERED: INSU100I10 SC (11:38)
[2020-12-26] MEDS ORDERED: PANT40TA52 PO (11:38)
[2020-12-26] MEDS ORDERED: ONDA-105 PO (11:38)
[2020-12-26] MEDS ORDERED: ASPI-789 PO (11:38)
[2020-12-26] MEDS: HOLD METFORMIN - RECEIVED CONTRAST 20 ML VIAL IV SCH (16:45)
[2020-12-26] MEDS ORDERED: PANTOPRAZOLE 40 MG (PROTONIX) TAB PO PRN (21:15)
--- NOTE | 2020-12-26 21:18 | History & Physical ---
HPI History of Present Illness: 60 yo F that presents with symptoms of covid. Patient does not want to be swabbed due to h/o nasal surgery. Patient's daughter and are currently in ICU 2/2 to Covid. Patient started having symptoms on 12/15 that continued to worsen. Patient has increasing shortness of breath and fever. Patient has not been vaccinated. Patient does not have baseline oxygen requirement. Source: patient Exam Limitations: no limitations Date seen by provider: Dec 26, 2020 Time Seen by Provider: 13:15 Attending Physician Maureen Fierro MD [place] [place] Consult Date of Admission Dec 25, 2020 at 21:20 Home Medications Home Medications Reviewed patient Home Medication Reconciliation performed by pharmacy medication reconciliations auto emissions technician and/or nursing. Patients Allergies have been reviewed. Allergies Coded Allergies: Iodinated Contrast Media (Verified Allergy, Mild, N/V, 04/27/20) Sulfa (Sulfonamide Antibiotics) (Verified Allergy, Mild, nausea, rash, headache, 04/27/20) [id number] Hx Patient Social History Living Status: Lives home independently with 2nd Hand Smoke Exposure: No Recent Hopitalizations: No Alcohol Use?: No Have you traveled recently?: No Immunizations Up To Date Date of Pneumonia Vaccine: Jan 26, 2010 Past Medical History HTN IDDM Obesity Family Medical History Significant Family History: No Pertinent Family Hx Family History: Cancer 03 MOTHER Congestive heart failure 03 MOTHER Family history: Arthritis 09 BROTHER 09 SISTER Family history: Cardiovascular disease 03 FATHER Family history: Gastrointestinal disease 09 BROTHER 09 SISTER Review of Systems ([facility]) Constitutional: fever, malaise, weakness EENTM: nose congestion, other (loss of taste) Respiratory: cough, short of breath Cardiovascular: no symptoms reported; No chest pain, No edema, No palpitations Gastrointestinal: no symptoms reported; No abdominal pain, No constipation, No diarrhea, No nausea, No vomiting Genitourinary: no symptoms reported; No dysuria, No frequency, No hematuria : No Musculoskeletal: back pain (chronic) Skin: no symptoms reported Psychiatric/Neurological: Anxiety, Depressed Reviewed Test Results Reviewed Test Results Lab Laboratory Tests Test 12/25/20 22:51 12/26/20 05:24 12/26/20 05:32 12/26/20 10:48 Range/Units Glucometer 167 H 208 H 254 H 70-110 MG/DL White Blood Count 5.5 4.3-11.0 10^3/uL Red Blood Count 4.31 3.80-5.11 10^6/uL Hemoglobin 12.8 11.5-16.0 g/dL Hematocrit 41 35-52 % Mean Corpuscular Volume 94 80-99 fL Mean Corpuscular Hemoglobin 30 25-34 pg Mean Corpuscular Hemoglobin Concent 31 L 32-36 g/dL Red Cell Distribution Width 13.2 10.0-14.5 % Platelet Count 307 130-400 10^3/uL Mean Platelet Volume 10.2 9.0-12.2 fL Immature Granulocyte % (Auto) 1 % Neutrophils (%) (Auto) 68 42-75 % Lymphocytes (%) (Auto) 21 12-44 % Monocytes (%) (Auto) 9 0-12 % Eosinophils (%) (Auto) 1 0-10 % Basophils (%) (Auto) 0 0-10 % Neutrophils # (Auto) 3.7 1.8-7.8 10^3/uL Lymphocytes # (Auto) 1.2 1.0-4.0 10^3/uL Monocytes # (Auto) 0.5 0.0-1.0 10^3/uL Eosinophils # (Auto) 0.1 0.0-0.3 10^3/uL Basophils # (Auto) 0.0 0.0-0.1 10^3/uL Immature Granulocyte # (Auto) 0.0 0.0-0.1 10^3/uL Sodium Level 137 135-145 MMOL/L Potassium Level 3.3 L 3.6-5.0 MMOL/L Chloride Level 104 98-107 MMOL/L Carbon Dioxide Level 23 21-32 MMOL/L Anion Gap 10 5-14 MMOL/L Blood Urea Nitrogen 12 7-18 MG/DL Creatinine 0.86 0.60-1.30 MG/DL Estimat Glomerular Filtration Rate 68 BUN/Creatinine Ratio 14 Glucose Level 201 H 70-105 MG/DL Calcium Level 7.7 L 8.5-10.1 MG/DL Test 12/26/20 16:52 Range/Units Glucometer 312 H 70-110 MG/DL Physical Exam-(CHC) Physical Exam Vital Signs VS - Last 72 Hours, by Label 12/25/20 12/25/20 12/25/20 12/25/20 18:50 20:18 22:00 22:21 Temp 38.2 38.2 36.7 Pulse 97 87 86 Resp 28 19 22 B/P (MAP) 155/89 (111) 143/71 (111) 147/70 (95) Pulse Ox 95 94 90 O2 Delivery Nasal Cannula Nasal Cannula Nasal Cannula O2 Flow Rate 3.00 3.00 2.50 12/25/20 12/26/20 12/26/20 12/26/20 23:00 00:16 00:17 02:40 Temp 36.4 38.2 Pulse 83 Resp 20 B/P (MAP) 137/79 (98) Pulse Ox 93 95 93 O2 Delivery Nasal Cannula Nasal Cannula Nasal Cannula O2 Flow Rate 2.00 3.00 2.00 12/26/20 12/26/20 12/26/20 12/26/20 04:23 06:53 08:00 08:00 Temp 36.7 36.5 Pulse 83 89 Resp 20 B/P (MAP) 142/78 (99) 142/87 (105) Pulse Ox 94 92 93 93 O2 Delivery Nasal Cannula Nasal Cannula Nasal Cannula Nasal Cannula O2 Flow Rate 3.00 2.00 3.00 4.00 12/26/20 12/26/20 12/26/20 12:00 15:20 16:40 Temp 36.2 36.5 Pulse 91 96 Resp 22 B/P (MAP) 144/96 (112) 165/84 (111) Pulse Ox 96 92 92 O2 Delivery Nasal Cannula Nasal Cannula Nasal Cannula O2 Flow Rate 4.00 2.00 5.00 Capillary Refill : General Appearance: WD/WN, mild distress (with activity including conversational dsypnea) Neck: non-tender, full range of motion; No carotid bruit Respiratory: no accessory muscle use, decreased breath sounds, wheezing Cardiovascular: normal peripheral pulses, regular rate, rhythm, no edema, no murmur Gastrointestinal: normal bowel sounds, non tender, soft, no organomegaly Back: no CVA tenderness, no vertebral tenderness Extremities: normal range of motion, non-tender, normal inspection, no pedal edema, no calf tenderness, normal capillary refill Neurologic/Psychiatric: [employer] II-XII nml as tested, no motor/sensory deficits, alert, normal mood/affect, oriented x 3 Skin: normal color, warm/dry Lymphatic: no adenopathy Assessment/Plan Assessment/Plan Admission Status: Inpatient Order (span 2 midnights) Reason for Inpatient Admission: Needs continued monitoring due to high risk for decompensation (1) Acute and chronic respiratory failure with hypoxia Status: Acute Assessment & Plan: - MAT protocol, Dexamethasone, Encourage IS, outside of time frame for Remdisivir, continuous pulse ox, stop IVFs, titrate oxygen as tolerate d (2) Insulin dependent diabetes mellitus Status: Chronic Assessment & Plan: - SSI, Accuchecks, will restart PO meds (3) COVID-19 Status: Acute (4) Hypercoagulable state associated with COVID-19 Status: Acute Assessment & Plan: - Lovenox, trending D-dimer (5) HTN (hypertension) Status: Chronic Assessment & Plan: - Continue home meds Qualifiers: Qualified Codes: I10 - Essential (primary) hypertension (6) Obesity, morbid, BMI 40.0-49.9 Status: Chronic MAUREEN FIERRO MD Dec 26, 2020 21:18
[2020-12-27 03:07] VITALS: BP 159/90
[2020-12-27] MEDS: RT-ALBUTEROL HFA 8.5 GM INHALER IH SCH ×4 (03:34→20:44)
[2020-12-27 06:04] LABS: BASOPHILS % (AUTO) 0 % (0-10); EOSINOPHILS % (AUTO) 0 % (0-10); HEMATOCRIT 42 % (35-52); HEMOGLOBIN 13.5 g/dL (11.5-16.0); LYMPHOCYTES # (AUTO) 0.9 10^3/uL (1.0-4.0); LYMPHOCYTES % (AUTO) 13 % (12-44); MEAN CORPUSCULAR HEMOGLOBIN 30 pg (25-34); MEAN CORPUSCULAR HGB CONC 32 g/dL (32-36); MEAN CORPUSCULAR VOLUME 94 fL (80-99); MEAN PLATELET VOLUME 10.2 fL (9.0-12.2); MONOCYTES # (AUTO) 0.7 10^3/uL (0.0-1.0); MONOCYTES % (AUTO) 10 % (0-12); NEUTROPHILS # (AUTO) 5.4 10^3/uL (1.8-7.8); NEUTROPHILS % (AUTO) 76 % (42-75); PLATELET COUNT 383 10^3/uL (130-400); WHITE BLOOD COUNT 7.1 10^3/uL (4.3-11.0)
[2020-12-27] MEDS: dexAMETHasone 6 MG TAB (DECADRON) PO SCH (06:04)
[2020-12-27] MEDS: inSUlin ASPART (NovoLOG) 1 UNIT/0.01 ML (CHARGE PER UNIT) SC SCH ×4 (06:04→21:13)
[2020-12-27 06:14] LABS: ALBUMIN 3.2 GM/DL (3.2-4.5); POTASSIUM 3.9 MMOL/L (3.6-5.0)
[2020-12-27 06:15] LABS: CALCIUM 8.4 MG/DL (8.5-10.1)
[2020-12-27 06:16] LABS: TOTAL PROTEIN 6.7 GM/DL (6.4-8.2)
[2020-12-27 06:18] LABS: BILIRUBIN,TOTAL 0.5 MG/DL (0.1-1.0)
[2020-12-27 06:20] LABS: CREATININE SERUM 0.79 MG/DL (0.60-1.30)
[2020-12-27 08:00] VITALS: BP 172/94
[2020-12-27] MEDS: GLIMEPIRIDE 4 MG (AMARYL) TAB PO SCH ×2 (10:09→21:09)
[2020-12-27] MEDS: ENOXAPARIN 40 MG/0.4 ML (LOVENOX) SYR SC SCH (10:09)
[2020-12-27 12:00] VITALS: BP 158/79
[2020-12-27] MEDS ORDERED: polyethylene glycoL POWDER 17 GM (MIRALAX) PACK PO PRN (13:30)
[2020-12-27 16:26] VITALS: BP 159/74
[2020-12-27 19:02] VITALS: BP 144/80
[2020-12-27] MEDS: LORazepam 0.5 MG (ATIVAN) TABLET PO PRN (21:09)
[2020-12-27] MEDS: CYCLOBENZAPRINE 10 MG (FLEXERIL) TAB PO PRN (21:13)
--- NOTE | 2020-12-27 23:03 | Progress Note ---
Subjective Subjective/Events-last exam Patient states that she feels some better but oxygen need has increased. Tolerating PO diet. Sitting up in chair this AM. Review of Systems Pulmonary: Dyspnea, Cough Cardiovascular: No: Chest Pain, Palpitations Gastrointestinal: No: Nausea, Vomiting, Abdominal Pain, Diarrhea, Constipation Neurological: Weakness, Incoordination Objective Exam Last Set of Vital Signs Vital Signs Date Time Temp Pulse Resp B/P (MAP) Pulse Ox O2 Delivery O2 Flow Rate FiO2 12/27/20 20:44 95 Nasal Cannula 5.00 12/27/20 19:02 35.3 85 22 144/80 (101) Capillary Refill : I&O Intake and Output 12/27/20 00:00 Intake Total 4730 ml Balance 4730 ml Intake Oral 1730 ml IV Total 3000 ml # Voids 10 General: Alert, Cooperative, Mild Distress (conversational dyspnea) Lungs: Other (basilar crackles and wheezing, increased work of breathing) Heart: Regular Rate, No Murmurs Abdomen: Normal Bowel Sounds, Soft, No Tenderness, No Masses Extremities: No Edema, No Tenderness/Swelling Neuro: Normal Speech Psych/Mental Status: Other (tearful during visit) Results/Procedures Lab Laboratory Tests 12/27/20 05:10: Glucometer 278H 12/27/20 05:40: White Blood Count 7.1, Red Blood Count 4.52, Hemoglobin 13.5, Hematocrit 42, Mean Corpuscular Volume 94, Mean Corpuscular Hemoglobin 30, Mean Corpuscular Hemoglobin Concent 32, Red Cell Distribution Width 12.8, Platelet Count 383, Mean Platelet Volume 10.2, Immature Granulocyte % (Auto) 1, Neutrophils (%) (Auto) 76H, Lymphocytes (%) (Auto) 13, Monocytes (%) (Auto) 10, Eosinophils (%) (Auto) 0, Basophils (%) (Auto) 0, Neutrophils # (Auto) 5.4, Lymphocytes # (Auto) 0.9L, Monocytes # (Auto) 0.7, Eosinophils # (Auto) 0.0, Basophils # (Auto) 0.0, Immature Granulocyte # (Auto) 0.1, D-Dimer 0.57H, Sodium Level 138, Potassium Level 3.9, Chloride Level 104, Carbon Dioxide Level 22, Anion Gap 12, Blood Urea Nitrogen 14, Creatinine 0.79, Estimat Glomerular Filtration Rate 75, BUN/Creatinine Ratio 18, Glucose Level 275H, Mean Blood Glucose 154H, Hemoglobin A1c 7.0H, Calcium Level 8.4L, Corrected Calcium 9.0, Total Bilirubin 0.5, Aspartate Amino Transf (AST/SGOT) 59H, Alanine Aminotransferase (ALT/SGPT) 58H, Alkaline Phosphatase 116, C-Reactive Protein High Sensitivity 7.18H, Total Protein 6.7, Albumin 3.2 12/27/20 12:02: Glucometer 319H 12/27/20 16:03: Glucometer 353H 12/27/20 20:53: Glucometer 356H Assessment/Plan Assessment/Plan (1) Acute and chronic respiratory failure with hypoxia Status: Acute Assessment & Plan: - MAT protocol, Dexamethasone, Encourage IS, outside of time frame for Remdisivir, continuous pulse ox, stop IVFs, titrate oxygen as tolerated 12/27: Stable on 5L NC throughout the day, will continue to titrate as tolerated, IS (2) Insulin dependent diabetes mellitus Status: Chronic Assessment & Plan: - SSI, Accuchecks, will restart PO meds 12/27: Start levemir while on steroids, Blood sugars 300s (3) COVID-19 Status: Acute (4) Hypercoagulable state associated with COVID-19 Status: Acute Assessment & Plan: - Lovenox, trending D-dimer (5) HTN (hypertension) Status: Chronic Assessment & Plan: - Continue home meds Qualifiers: Qualified Codes: I10 - Essential (primary) hypertension (6) Obesity, morbid, BMI 40.0-49.9 Status: Chronic MAUREEN ANGEL MD Dec 27, 2020 23:03
[2020-12-27 23:28] VITALS: BP 152/80
[2020-12-28] MEDS: HYDROcodone/APAP 5 MG/325 MG (LORTAB) TAB PO PRN ×2 (01:46→20:52)
[2020-12-28] MEDS: RT-ALBUTEROL HFA 8.5 GM INHALER IH SCH ×4 (02:30→20:45)
[2020-12-28 05:00] VITALS: BP 155/87
[2020-12-28] MEDS: dexAMETHasone 6 MG TAB (DECADRON) PO SCH (05:45)
[2020-12-28] MEDS: inSUlin ASPART (NovoLOG) 1 UNIT/0.01 ML (CHARGE PER UNIT) SC SCH ×4 (05:46→20:46)
[2020-12-28 06:51] LABS: ALBUMIN 3.2 GM/DL (3.2-4.5); BILIRUBIN,TOTAL 0.5 MG/DL (0.1-1.0); CALCIUM 8.6 MG/DL (8.5-10.1); CREATININE SERUM 0.79 MG/DL (0.60-1.30); POTASSIUM 3.7 MMOL/L (3.6-5.0); TOTAL PROTEIN 6.6 GM/DL (6.4-8.2)
[2020-12-28 08:00] VITALS: BP 175/94
[2020-12-28] MEDS: ENOXAPARIN 40 MG/0.4 ML (LOVENOX) SYR SC SCH (09:02)
[2020-12-28] MEDS: GLIMEPIRIDE 4 MG (AMARYL) TAB PO SCH ×2 (09:02→20:46)
[2020-12-28 12:00] VITALS: BP 169/89
[2020-12-28 16:30] VITALS: BP 148/82
[2020-12-28 20:15] VITALS: BP 151/82
[2020-12-28] MEDS: CYCLOBENZAPRINE 10 MG (FLEXERIL) TAB PO PRN (20:46)
[2020-12-28] MEDS: LORazepam 0.5 MG (ATIVAN) TABLET PO PRN (20:46)
--- NOTE | 2020-12-28 22:49 | Progress Note ---
Subjective Subjective/Events-last exam Patient states that she is doing ok this AM. She would like to go see her daughter this AM since her daughter is getting worse. Tolerating PO diet. Up in chair this AM Review of Systems Pulmonary: Dyspnea Neurological: Weakness, Incoordination Objective Exam Last Set of Vital Signs Vital Signs Date Time Temp Pulse Resp B/P (MAP) Pulse Ox O2 Delivery O2 Flow Rate FiO2 12/28/20 22:27 94 5.00 12/28/20 20:15 36.0 78 22 151/82 (105) Nasal Cannula Capillary Refill : I&O Intake and Output 12/28/20 00:00 Intake Total 3740 ml Balance 3740 ml Intake Oral 1740 ml IV Total 2000 ml # Voids 9 # Bowel Movements 2 General: Alert, Oriented X3, Cooperative, Mild Distress Lungs: Other (basilar crackles, end exp wheezing, increased work of breathing with moderate activity) Heart: Regular Rate, No Murmurs Abdomen: Normal Bowel Sounds, Soft, No Tenderness, No Masses Extremities: Other Neuro: Normal Speech, Sensation Intact, Cranial Nerves 3-12 NL Results/Procedures Lab Laboratory Tests 12/27/20 23:26: Glucometer 261H 12/28/20 05:22: Glucometer 200H 12/28/20 05:48: Sodium Level 140, Potassium Level 3.7, Chloride Level 105, Carbon Dioxide Level 25, Anion Gap 10, Blood Urea Nitrogen 18, Creatinine 0.79, Estimat Glomerular Filtration Rate 75, BUN/Creatinine Ratio 23, Glucose Level 209H, Calcium Level 8.6, Corrected Calcium 9.2, Total Bilirubin 0.5, Aspartate Amino Transf (AST/SGOT) 33, Alanine Aminotransferase (ALT/SGPT) 46, Alkaline Phosphatase 102, Total Protein 6.6, Albumin 3.2 12/28/20 11:18: Glucometer 359H 12/28/20 16:33: Glucometer 310H 12/28/20 20:18: Glucometer 341H Assessment/Plan Assessment/Plan (1) Acute and chronic respiratory failure with hypoxia Status: Acute Assessment & Plan: - MAT protocol, Dexamethasone, Encourage IS, outside of time frame for Remdisivir, continuous pulse ox, stop IVFs, titrate oxygen as tolerated 12/27: Stable on 5L NC throughout the day, will continue to titrate as tolerated, IS 12/28: Continue to be stable on 5L HFNC, Will get home oxygen study in AM, patient wanting to go home (2) Insulin dependent diabetes mellitus Status: Chronic Assessment & Plan: - SSI, Accuchecks, will restart PO meds 12/27: Start levemir while on steroids, Blood sugars 300s (3) COVID-19 Status: Acute (4) Hypercoagulable state associated with COVID-19 Status: Acute Assessment & Plan: - Lovenox, trending D-dimer (5) HTN (hypertension) Status: Chronic Assessment & Plan: - Continue home meds Qualifiers: Qualified Codes: I10 - Essential (primary) hypertension (6) Obesity, morbid, BMI 40.0-49.9 Status: Chronic MAUREEN ANGEL MD Dec 28, 2020 22:49
[2020-12-28 23:49] VITALS: BP 156/86
[2020-12-29 03:37] VITALS: BP 161/89
[2020-12-29] MEDS: RT-ALBUTEROL HFA 8.5 GM INHALER IH SCH (03:40)
[2020-12-29] MEDS: inSUlin ASPART (NovoLOG) 1 UNIT/0.01 ML (CHARGE PER UNIT) SC SCH ×2 (06:00→11:42)
[2020-12-29] MEDS: dexAMETHasone 6 MG TAB (DECADRON) PO SCH (06:02)
[2020-12-29 07:41] LABS: BASOPHILS % (AUTO) 0 % (0-10); EOSINOPHILS % (AUTO) 0 % (0-10); HEMATOCRIT 46 % (35-52); HEMOGLOBIN 14.5 g/dL (11.5-16.0); LYMPHOCYTES # (AUTO) 1.6 10^3/uL (1.0-4.0); LYMPHOCYTES % (AUTO) 16 % (12-44); MEAN CORPUSCULAR HEMOGLOBIN 30 pg (25-34); MEAN CORPUSCULAR HGB CONC 32 g/dL (32-36); MEAN CORPUSCULAR VOLUME 93 fL (80-99); MEAN PLATELET VOLUME 9.6 fL (9.0-12.2); MONOCYTES # (AUTO) 0.8 10^3/uL (0.0-1.0); MONOCYTES % (AUTO) 8 % (0-12); NEUTROPHILS # (AUTO) 7.4 10^3/uL (1.8-7.8); NEUTROPHILS % (AUTO) 74 % (42-75); PLATELET COUNT 489 10^3/uL (130-400)
[2020-12-29 07:57] LABS: ALBUMIN 3.3 GM/DL (3.2-4.5); BILIRUBIN,TOTAL 0.5 MG/DL (0.1-1.0); CALCIUM 8.7 MG/DL (8.5-10.1); CREATININE SERUM 0.82 MG/DL (0.60-1.30); TOTAL PROTEIN 6.6 GM/DL (6.4-8.2)
[2020-12-29 08:00] VITALS: BP 179/84
[2020-12-29] MEDS: ENOXAPARIN 40 MG/0.4 ML (LOVENOX) SYR SC SCH (09:05)
[2020-12-29] MEDS: GLIMEPIRIDE 4 MG (AMARYL) TAB PO SCH (09:05)
--- NOTE | 2020-12-29 13:42 | Discharge Summary ---
Diagnosis/Chief Complaint Date of Admission Dec 25, 2020 at 21:20 Date of Discharge Discharge Diagnosis Problems/Diagnosis: (1) Acute and chronic respiratory failure with hypoxia Assessment & Plan: - MAT protocol, Dexamethasone, Encourage IS, outside of time frame for Remdisivir, continuous pulse ox, stop IVFs, titrate oxygen as tolerated 12/27: Stable on 5L NC throughout the day, will continue to titrate as tolerated, IS 12/28: Continue to be stable on 5L HFNC, Will get home oxygen study in AM, patient wanting to go home Status: Acute (2) Insulin dependent diabetes mellitus Assessment & Plan: - SSI, Accuchecks, will restart PO meds 12/27: Start levemir while on steroids, Blood sugars 300s Status: Chronic (3) COVID-19 Status: Acute (4) Hypercoagulable state associated with COVID-19 Assessment & Plan: - Lovenox, trending D-dimer Status: Acute (5) HTN (hypertension) Assessment & Plan: - Continue home meds Qualifiers: Qualified Codes: I10 - Essential (primary) hypertension Status: Chronic (6) Obesity, morbid, BMI 40.0-49.9 Status: Chronic Chief Complaint/HPI Chief Complaint/HPI 60 yo F that presents with symptoms of covid. Patient does not want to be swabbed due to h/o nasal surgery. Patient's daughter and are currently in ICU 2/2 to Covid. Patient started having symptoms on 12/15 that continued to worsen. Patient has increasing shortness of breath and fever. Patient has not been vaccinated. Patient does not have baseline oxygen requirement. Discharge Summary-Simple/Stand Consultations Discharge Physical Examination Allergies: Coded Allergies: Iodinated Contrast Media (Verified Allergy, Mild, N/V, 04/27/20) Sulfa (Sulfonamide Antibiotics) (Verified Allergy, Mild, nausea, rash, headache, 04/27/20) Vitals & I&Os Vital Sign - Last 12Hours Date Time Temp Pulse Resp B/P (MAP) Pulse Ox O2 Delivery O2 Flow Rate FiO2 12/29/20 08:16 92 5.00 12/29/20 08:00 36.2 73 22 179/84 (115) Nasal Cannula Intake and Output 12/29/20 00:00 Intake Total 1480 ml Balance 1480 ml Hospital Course See final discharge diagnosis. Discharge Instructions to patient/family Please see electronic discharge instructions given to patient. Discharge Medications Reviewed and agree with Discharge Medication list on patient's Discharge Instruction sheet MAUREEN ANGEL MD Dec 29, 2020 13:42
[2020-12-29] MEDS ORDERED: DEXA2TAB PO (13:44)
--- NOTE | 2020-12-29 13:45 | Discharge Summary ---
Discharge [facility] Reconcile Patient Problems Problems Reviewed?: Yes Discharge Medications New, Converted or Re-Newed RX: Transmitted to Pharmacy New Medications: Dexamethasone (Dexamethasone) 2 Mg Tablet 2 MG PO DAILY, #18 TAB Take 2 tabs x 5 days then 1 tab x 5 days then 1/2 tab x 6 days Continued Medications: Aspirin/Acetaminophen/Caffeine (Excedrin Migraine Caplet) 1 Each Tablet 2 EACH PO Q6-8HR PRN for Headache, TAB Carvedilol (Carvedilol) 25 Mg Tablet 25 MG PO BID, TAB Cyclobenzaprine HCl (Cyclobenzaprine HCl) 10 Mg Tablet 10 MG PO BID PRN for MUSCLE SPASMS, TAB Dicyclomine HCl (Dicyclomine HCl) 10 Mg Capsule 10 MG PO TID PRN for IBS SYMPTOMS, CAP Dulaglutide (Trulicity) 0.75 Mg/0.5 Ml Pen.injctr 0.75 MG SC TUE, EA Glimepiride (Glimepiride) 4 Mg Tablet 4 MG PO BID, TAB Ibuprofen (Ibuprofen) 200 Mg Tablet 400-600 MG PO Q8H PRN for PAIN-MILD (1-4), TAB Insulin Glargine,Hum.rec.anlog (Lantus Solostar) 100 Unit/1 Ml Insuln.pen 27 UNITS SC HS, UNITS Ondansetron HCl (Ondansetron HCl) 4 Mg Tablet 4 MG PO Q8H PRN for NAUSEA/VOMITING-1ST LINE, TAB Pantoprazole Sodium (Pantoprazole Sodium) 40 Mg Tablet.dr 40 MG PO DAILY PRN for HEARTBURN, TAB Patient Instructions Goal/Follow Up Appt: F/u with PCP 1 week Activity & Diet Discharge Diet: ADA Diet Activity as Tolerated: Yes MAUREEN ANGEL MD Dec 29, 2020 13:45
== END 2020-12-29 14:30 | disposition home or self-care (01) | DRG 177 ==
LOC: EDUNIT# 18:48 → ER 18:52 → 4TH 21:20
PROVIDERS: ADMIT Family Medicine; ATTEND Family Medicine
DX: U07.1 COVID-19 (principal); J96.21 Acute and chronic respiratory failure with hypoxia; D68.69 Other thrombophilia; Z68.41 Body mass index [BMI] 40.0-44.9, adult; Z73.0 Burn-out; Z88.2 Allergy status to sulfonamides; Z91.041 Radiographic dye allergy status; Z79.899 Other long term (current) drug therapy; E78.00 Pure hypercholesterolemia, unspecified; I10 Essential (primary) hypertension; K21.9 Gastro-esophageal reflux disease without esophagitis; K58.9 Irritable bowel syndrome, unspecified; M19.90 Unspecified osteoarthritis, unspecified site; G89.29 Other chronic pain; M54.9 Dorsalgia, unspecified; E11.9 Type 2 diabetes mellitus without complications; F41.9 Anxiety disorder, unspecified; F32.9 Major depressive disorder, single episode, unspecified; E66.9 Obesity, unspecified
CPT/HCPCS: 36415; 71045; 71275; 74177; 80048; 80053; 82947; 83036; 83690; 84145; 85025; 85379; 86141; 94640; 94760; 94761; 96374; 96375

== ENCOUNTER 2021-01-13 12:03 | Emergency (ER) | payer MEDICAID ==
[~2021-01-13] VITALS: Ht 165 cm; Wt 105.0 kg
[~2021-01-13 12:03] MED LIST changes: +ASPI-789 PO; +DEXA2TAB PO; +IBUP-2473 PO; +INSU100I10 SC; +ONDA-105 PO; +PANT40TA52 PO
--- NOTE | 2021-01-13 12:12 | ED General ---
General Stated Complaint: GENERAL Source of Information: Patient Exam Limitations: No Limitations History of Present Illness Date Seen by Provider: Jan 13, 2021 Time Seen by Provider: 12:10 Initial Comments To ER by EMS from [place] with reports of possible heart attack. She had a follow- up appointment on Friday after being released from the hospital with Covid. She lost her daughter and to Covid over the course of the past month. They told her that things looked good but if she had shortness of breath or anxiety she should go to urgent care. She went to the clinic in [place] today and she reports that they did an EKG which she has with her. She states they told her that she was going into "cardiac arrest" and she should go to the emergency room. She was without chest pain. She states "of course I am anxious I just lost my daughter and Michaelle". She does not have chest pain now or at any time. She does have intermittent shortness of breath. She complains of a headache. Timing/Duration: 1-2 Days Severity: Moderate Associated Systoms: Cough Allergies and Home Medications Allergies Coded Allergies: Iodinated Contrast Media (Verified Allergy, Mild, N/V, 04/27/20) Sulfa (Sulfonamide Antibiotics) (Verified Allergy, Mild, nausea, rash, headache, 04/27/20) Patient Home Medication List Home Medication List Reviewed: Yes Alprazolam (Xanax) 0.5 Mg Tablet, 0.5 MG PO BID PRN for ANXIETY Prescribed by: THANG FLORES on 01/13/21 1218 Aspirin/Acetaminophen/Caffeine (Excedrin Migraine Caplet) 1 Each Tablet, 2 EACH PO Q6-8HR PRN for Headache, (Reported) Entered as Reported by: SHEYLA CABRAL on 12/26/20 1138 Carvedilol (Carvedilol) 25 Mg Tablet, 25 MG PO BID, (Reported) Entered as Reported by: MATY MELTON on 04/27/20 0725 Cyclobenzaprine HCl (Cyclobenzaprine HCl) 10 Mg Tablet, 10 MG PO BID PRN for MUSCLE SPASMS, (Reported) Entered as Reported by: SHEYLA CABRAL on 12/26/20 1138 Dexamethasone (Dexamethasone) 2 Mg Tablet, 2 MG PO DAILY Prescribed by: MAUREEN ANGEL on 12/29/20 1344 Dicyclomine HCl (Dicyclomine HCl) 10 Mg Capsule, 10 MG PO TID PRN for IBS SYMPTOMS, (Reported) Entered as Reported by: MATY MELTON on 04/27/20724 Dulaglutide (Trulicity) 0.75 Mg/0.5 Ml Pen.injctr, 0.75 MG SC TUE, (Reported) Entered as Reported by: MATY MELTON on 04/27/20724 Glimepiride (Glimepiride) 4 Mg Tablet, 4 MG PO BID, (Reported) Entered as Reported by: MATY MELTON on 04/27/20724 Ibuprofen (Ibuprofen) 200 Mg Tablet, 400-600 MG PO Q8H PRN for PAIN-MILD (1-4), (Reported) Entered as Reported by: SHEYLA CABRAL on 12/26/201137 Insulin Glargine,Hum.rec.anlog (Lantus Solostar) 100 Unit/1 Ml Insuln.pen, 27 UNITS SC HS, (Reported) Entered as Reported by: SHEYLA CABRAL on 12/26/201137 Ondansetron HCl (Ondansetron HCl) 4 Mg Tablet, 4 MG PO Q8H PRN for NAUSEA/VOMITING-1ST LINE, (Reported) Entered as Reported by: SHEYLA CABRAL on 12/26/201137 Pantoprazole Sodium (Pantoprazole Sodium) 40 Mg Tablet.dr, 40 MG PO DAILY PRN for HEARTBURN, (Reported) Entered as Reported by: SHEYLA CABRAL on 12/26/201137 Review of Systems Review of Systems Constitutional: see HPI EENTM: see HPI Respiratory: see HPI, short of breath Cardiovascular: no symptoms reported Genitourinary: no symptoms reported Musculoskeletal: no symptoms reported Skin: no symptoms reported Psychiatric/Neurological: No Symptoms Reported Hematologic/Lymphatic: No Symptoms Reported Past Qexigfl-Kmpxrw-Vfzmum Hx Seasonal Allergies Seasonal Allergies: No Past Medical History Surgeries: Yes (RECTAL, UMBILICAL HERNIA REPAIR) Appendectomy, Gallbladder, Hysterectomy, Oophorectomy Respiratory: No Currently Using CPAP: No Currently Using BIPAP: No Cardiac: Yes High Cholesterol, Hypertension Neurological: No Reproductive Disorders: Yes (OVARIAN CANCER(TOTAL HYSTERECTOMY)) Sexually Transmitted Disease: No HIV/AIDS: No Genitourinary: No Gastrointestinal: Yes Gastroesophageal Reflux, Chronic Diarrhea, Irritable Bowel Musculoskeletal: Yes Arthritis, Chronic Back Pain Endocrine: Yes Diabetes, Non-Insulin dep HEENT: Yes (GLASSES) Loss of Vision: Denies Hearing Impairment: Denies Cancer: Yes Rectal, Ovarian Did You Recieve Any Treatments: Yes What Type of Treatment Did You: Surgical Intervention Psychosocial: Yes (HX) Anxiety, Depression Integumentary: No Blood Disorders: No Adverse Reaction/Blood Tranf: No Family Medical History Cancer 03 MOTHER Congestive heart failure 03 MOTHER Family history: Arthritis 09 BROTHER 09 SISTER Family history: Cardiovascular disease 03 FATHER Family history: Gastrointestinal disease 09 BROTHER 09 SISTER No Pertinent Family Hx Physical Exam Vital Signs Vital Signs - First Documented 01/13/21 12:03 Temp 36.3 Pulse 91 Resp 16 B/P (MAP) 133/91 (105) Pulse Ox 96 O2 Delivery Room Air Capillary Refill : Height, Weight, BMI Height: 5'6" Weight: 240lbs. oz. 108.319249is; 42.66 BMI Method:Stated General Appearance: No Apparent Distress, WD/WN, Other (Oxygen saturation 98% room air heart rate eighty-eight blood pressure 129/94. Alert and oriented very pleasant jovial and in no distress. She is without chest pain in the EKG sent with her from the clinic is completely unremarkable.) Eyes: Bilateral Eye Normal Inspection, Bilateral Eye PERRL, Bilateral Eye EOMI HEENT: PERRL/EOMI, TMs Normal Respiratory: Lungs Clear, Normal Breath Sounds, No Accessory Muscle Use, No Respiratory Distress Cardiovascular: Regular Rate, Rhythm, Normal Peripheral Pulses Gastrointestinal: Normal Bowel Sounds, Non Tender, Soft Extremity: Normal Capillary Refill, Normal Inspection Neurologic/Psychiatric: Alert, Oriented x3 Skin: Normal Color, Warm/Dry Progress/Results/Core Measures Suspected Sepsis SIRS Temperature: Pulse: Respiratory Rate: Laboratory Tests 01/13/21 12:55: Blood Pressure / Mean: Laboratory Tests 01/13/21 12:55: Results/Orders Lab Results Laboratory Tests Test 01/13/21 12:55 Range/Units My Orders Orders - THANG FLORES APRN Chest 1 View, Ap/Pa Only (01/13/21 12:09) BNP (01/13/21 12:09) Ekg Tracing (01/13/21 12:09) Cbc With Automated Diff (01/13/21 12:09) Comprehensive Metabolic Panel (01/13/21 12:09) Ed Iv/Invasive Line Start (01/13/21 12:09) Mupirocin Ointment (Bactroban Ointment (01/13/21 21:00) Ketorolac Injection (Toradol Injection) (01/13/21 12:45) Orphenadrine Inj (Ed Only) (Norflex Inje (01/13/21 12:45) Mupirocin Ointment (Bactroban Ointment (01/13/21 12:38) General/Regular (01/13/21 Lunch) Vital Signs/I&O 01/13/21 12:03 Temp 36.3 Pulse 91 Resp 16 B/P (MAP) 133/91 (105) Pulse Ox 96 O2 Delivery Room Air Capillary Refill : Departure Communication (Admissions) Family Conversation NAME: FELICIA CAPELLAN [facility] REC#: [id number] PT STATUS: REG ER : 1960 PHYSICIAN: THANG FLORES APRN ADMIT DATE: 01/13/21/ER Draft Date of Exam:01/13/21 CHEST 1 VIEW, AP/PA ONLY Clinical Indication: Patient with headache. Patient had Covid December 29 and out of quarantine. Exam: Portable chest x-ray upright view. Comparisons: Chest x-ray dated 12/25/2020. Findings: Cardiomegaly is seen. There is no significant pulmonary vascular congestion. There is small to moderate amount of patchy lung infiltrates involving both midlung morris and both lung bases which has slightly decreased in the interim. There is no pleural effusion or pneumothorax. There are degenerative spurs involving the spine. IMPRESSION: There are bilateral lung infiltrates which have slightly improved in the interim. Dictated on workstation # [id number] Dict: 01/13/21 1249 Trans: 01/13/21 1251 [facility] [id number] Interpreted by: [place] B[place] MD Electronically signed by: EKG here shows sinus rhythm at eighty-six, QTc [address] segment changes no ectopy give her a short prescription for benzodiazepines to control her anxiety. Surely if anything warrants a benzodiazepine a loss of and daughter within the past month would. 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 Decision time for Depature: 12:17 Referrals: [facility] ([facility]P) Primary Care Physician CHRISTIANO LYNN APRN (Family) Primary Care Physician Patient Instructions: Anxiety, Adult (DC) Add. Discharge Instructions: Apply the antibiotic cream to the lesions on the face and neck twice daily for 7 days.. Use one half of the Xanax tablets twice a day as needed for anxiety. If this fails to sufficiently control your anxiety then take a whole tablet. Scripts Alprazolam (Xanax) 0.5 Mg Tablet 0.5 MG PO BID PRN for ANXIETY, #10 TAB Prov: THANG FLORES APRN 01/13/21 THANG FLORES APRN Jan 13, 2021 12:12
[2021-01-13] MEDS ORDERED: ALPR0.5T PO (12:18)
[2021-01-13] MEDS ORDERED: MUPIROCIN 2% OINT 22 GM (BACTROBAN) TUBE ONE (12:38)
[2021-01-13] MEDS: KETOROLAC 60 MG/2 ML VIAL IM ONE ×2 (12:41→12:43)
[2021-01-13] MEDS: ORPHENADRINE 60 MG/2 ML (NORFLEX) AMP (ED ONLY) IM ONE ×2 (12:42→12:43)
--- NOTE | 2021-01-13 12:51 | Diagnostic Imaging Report ---
Clinical Indication: Patient with headache. Patient had Covid December 29 and out of quarantine. Exam: Portable chest x-ray upright view. Comparisons: Chest x-ray dated 12/25/2020. Findings: Cardiomegaly is seen. There is no significant pulmonary vascular congestion. There is small to moderate amount of patchy lung infiltrates involving both midlung morris and both lung bases which has slightly decreased in the interim. There is no pleural effusion or pneumothorax. There are degenerative spurs involving the spine. IMPRESSION: There are bilateral lung infiltrates which have slightly improved in the interim. Dictated by: Dictated on workstation # [id number]
[2021-01-13 13:01] LABS: BASOPHILS % (AUTO) 1 % (0-10); EOSINOPHILS # (AUTO) 0.1 10^3/uL (0.0-0.3); EOSINOPHILS % (AUTO) 2 % (0-10); HEMATOCRIT 41 % (35-52); HEMOGLOBIN 13.1 g/dL (11.5-16.0); LYMPHOCYTES % (AUTO) 13 % (12-44); MEAN CORPUSCULAR HEMOGLOBIN 30 pg (25-34); MEAN CORPUSCULAR HGB CONC 32 g/dL (32-36); MEAN CORPUSCULAR VOLUME 95 fL (80-99); MONOCYTES # (AUTO) 0.4 10^3/uL (0.0-1.0); MONOCYTES % (AUTO) 6 % (0-12); NEUTROPHILS # (AUTO) 5.9 10^3/uL (1.8-7.8); NEUTROPHILS % (AUTO) 79 % (42-75); PLATELET COUNT 201 10^3/uL (130-400); WHITE BLOOD COUNT 7.5 10^3/uL (4.3-11.0)
[2021-01-13 13:12] LABS: ALBUMIN 3.6 GM/DL (3.2-4.5); POTASSIUM 3.8 MMOL/L (3.6-5.0)
[2021-01-13 13:13] LABS: CALCIUM 8.3 MG/DL (8.5-10.1)
[2021-01-13 13:14] LABS: TOTAL PROTEIN 6.7 GM/DL (6.4-8.2)
[2021-01-13 13:16] LABS: BILIRUBIN,TOTAL 0.8 MG/DL (0.1-1.0)
[2021-01-13 13:18] LABS: CREATININE SERUM 0.73 MG/DL (0.60-1.30)
[2021-01-13 13:51] VITALS: BP 156/84
[2021-01-13] MEDS ORDERED: MUPIROCIN 2% OINT 22 GM (BACTROBAN) TUBE TOP SCH (21:00)
== END 2021-01-13 13:51 | disposition home or self-care (01) ==
LOC: EDUNIT# 12:03 → ER 12:04
DX: F41.9 Anxiety disorder, unspecified (principal); R06.00 Dyspnea, unspecified; I10 Essential (primary) hypertension; K21.9 Gastro-esophageal reflux disease without esophagitis; E11.9 Type 2 diabetes mellitus without complications; Z79.82 Long term (current) use of aspirin; Z79.899 Other long term (current) drug therapy
CPT/HCPCS: 36415; 71045; 80053; 83880; 85025; 93005

== ENCOUNTER 2021-01-14 19:11 | Emergency (ER) | payer MEDICAID ==
[~2021-01-14] VITALS: Ht 165.1 cm; Wt 108.8 kg
[~2021-01-14 19:11] MED LIST changes: +ALPR0.5T PO
[2021-01-14 19:31] LABS: BASOPHILS % (AUTO) 0 % (0-10); EOSINOPHILS # (AUTO) 0.2 10^3/uL (0.0-0.3); EOSINOPHILS % (AUTO) 2 % (0-10); HEMATOCRIT 40 % (35-52); LYMPHOCYTES # (AUTO) 2.3 10^3/uL (1.0-4.0); LYMPHOCYTES % (AUTO) 21 % (12-44); MEAN CORPUSCULAR HEMOGLOBIN 30 pg (25-34); MEAN CORPUSCULAR HGB CONC 32 g/dL (32-36); MEAN CORPUSCULAR VOLUME 93 fL (80-99); MEAN PLATELET VOLUME 9.9 fL (9.0-12.2); MONOCYTES # (AUTO) 1.1 10^3/uL (0.0-1.0); MONOCYTES % (AUTO) 10 % (0-12); NEUTROPHILS # (AUTO) 7.2 10^3/uL (1.8-7.8); NEUTROPHILS % (AUTO) 66 % (42-75); PLATELET COUNT 248 10^3/uL (130-400); WHITE BLOOD COUNT 10.9 10^3/uL (4.3-11.0)
[2021-01-14] MEDS ORDERED: OLANZapine 5 MG ODT (ZyPREXA ZYDIS) PO ONE (19:45)
[2021-01-14 19:49] LABS: ALANINE AMINOTRANSFERASE 67 U/L (0-55); ALBUMIN 3.7 GM/DL (3.2-4.5); ALKALINE PHOSPHATASE 91 U/L (40-136); BILIRUBIN,TOTAL 0.5 MG/DL (0.1-1.0); BUN/CREATININE RATIO 23; CARBON DIOXIDE 21 MMOL/L (21-32); CHLORIDE 108 MMOL/L (98-107); CREATINE KINASE 56 U/L (29-168); CREATININE SERUM 0.94 MG/DL (0.60-1.30); GFR ESTIMATED 61; GLUCOSE 225 MG/DL (70-105); MAGNESIUM 2.4 MG/DL (1.6-2.4); POTASSIUM 3.6 MMOL/L (3.6-5.0); SODIUM 140 MMOL/L (135-145); TOTAL PROTEIN 6.9 GM/DL (6.4-8.2)
[2021-01-14 19:49] LABS: BILIRUBIN,URINE NEGATIVE (NEGATIVE); CLARITY,URINE SL CLOUDY; COLOR,URINE YELLOW; GLUCOSE, URINE (UA) NEGATIVE (NEGATIVE); KETONES,URINE NEGATIVE (NEGATIVE); LEUKOCYTE ESTERASE ,URINE NEGATIVE (NEGATIVE); NITRITE,URINE NEGATIVE (NEGATIVE); PROTEIN,URINE 1+ (NEGATIVE)
[2021-01-14 19:51] LABS: ACETAMINOPHEN < 10 UG/ML (10-30)
[2021-01-14 19:58] LABS: BACTERIA,URINE TRACE /HPF; CALCIUM OXALATE CRYSTALS,UR FEW /LPF; HYALINE CASTS, URINE 0-2 /LPF; WBC,URINE RARE /HPF
[2021-01-14 19:59] LABS: AMPHETAMINE SCREEN, URINE NEGATIVE (NEGATIVE); BARBITURATE SCREEN URINE NEGATIVE (NEGATIVE); BENZODIAZEPINES SCREEN URINE NEGATIVE (NEGATIVE); CANNABINOID SCREEN, URINE NEGATIVE (NEGATIVE); COCAINE SCREEN URINE NEGATIVE (NEGATIVE); METHADONE STAT NEGATIVE (NEGATIVE); METHAMPHETAMINE SCREEN URINE S NEGATIVE (NEGATIVE); OPIATE SCREEN URINE NEGATIVE (NEGATIVE); OXYCODONE STAT NEGATIVE (NEGATIVE); PROPOXYPHENE STAT NEGATIVE (NEGATIVE); TRICYCLIC ANTIDEPRESSANTS SCRE NEGATIVE (NEGATIVE)
[2021-01-14 20:00] LABS: CREATINE KINASE MB 1.3 NG/ML (<6.6); TSH (THYROID ANALYZER) 1.41 UIU/ML (0.35-4.94)
--- NOTE | 2021-01-14 20:35 | Diagnostic Imaging Report ---
PROCEDURE: CT head and neck without contrast. TECHNIQUE: Contiguous axial images were obtained from the skull base through the vertex. Noncontrast axial images were then obtained of the soft tissue of the neck. Auto Exposure Controls were utilized during the CT exam to meet ALARA standards for radiation dose reduction. INDICATION: Altered mental status. FINDINGS: CT HEAD: CT images of the head were obtained. Ventricles and sulci are within normal limits for size. There is no intracranial hemorrhage identified. There is no abnormal mass effect or shift of midline structures. IMPRESSION: Unremarkable CT of the head. CT NECK: Multiple contiguous axial CT images of the cervical spine were obtained with sagittal and coronal reformatted images produced. The cervical curvature and alignment are within normal limits. The vertebral body heights and disc spaces are maintained without evidence of fracture or subluxation. There is no paraspinous hematoma. There is mild patchy density in the lung apices which could represent pneumonitis. IMPRESSION: No CT evidence of acute cervical spinal abnormality. Note is made of mild patchy pneumonitis or possible scarring in the visualized lung apices. Dictated by: Dictated on workstation # [id number]
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
[2021-01-14] MEDS ORDERED: cefTRIAXone 1,000 MG in WATER (STERILE) FOR INJECTION 10 ML IV ONE (21:15)
[2021-01-14] MEDS ORDERED: AZITHROMYCIN 250 MG TAB (ZITHROMAX) PO ONE (21:15)
[2021-01-14 23:57] VITALS: BP 140/83
== END 2021-01-14 23:57 | disposition left against medical advice (07) ==
LOC: EDUNIT# 19:11 → ER 19:12
DX: F23 Brief psychotic disorder (principal); U07.1 COVID-19; E11.9 Type 2 diabetes mellitus without complications; E66.9 Obesity, unspecified; K21.9 Gastro-esophageal reflux disease without esophagitis; F41.9 Anxiety disorder, unspecified; I10 Essential (primary) hypertension; Z63.4 Disappearance and death of family member; Z68.38 Body mass index [BMI] 38.0-38.9, adult; Z79.82 Long term (current) use of aspirin; Z79.899 Other long term (current) drug therapy; Z79.4 Long term (current) use of insulin
CPT/HCPCS: 70450; 70490; 80053; 80306; 81000; 82550; 82553; 82947; 83735; 83874; 84443; 84484; 85025; 93005; 93041; 99284; G0480 ×2; 36415; 80320; 80329; 96372

== ENCOUNTER 2021-01-16 16:19 | Emergency (ER) | payer MEDICAID ==
[~2021-01-16] VITALS: Ht 162.5 cm; Wt 108.8 kg
[2021-01-16] MEDS ORDERED: LORazepam INJ 2 MG/ML (ATIVAN) VIAL ONE (16:29)
[2021-01-16] MEDS ORDERED: OLANZapine 5 MG ODT (ZyPREXA ZYDIS) PO ONE (16:30)
[2021-01-16 16:32] LABS: BASOPHILS # (AUTO) 0.1 10^3/uL (0.0-0.1); BASOPHILS % (AUTO) 0 % (0-10); EOSINOPHILS # (AUTO) 0.2 10^3/uL (0.0-0.3); EOSINOPHILS % (AUTO) 2 % (0-10); HEMATOCRIT 42 % (35-52); HEMOGLOBIN 13.7 g/dL (11.5-16.0); LYMPHOCYTES # (AUTO) 2.6 10^3/uL (1.0-4.0); LYMPHOCYTES % (AUTO) 23 % (12-44); MEAN CORPUSCULAR HEMOGLOBIN 30 pg (25-34); MEAN CORPUSCULAR HGB CONC 32 g/dL (32-36); MEAN CORPUSCULAR VOLUME 91 fL (80-99); MEAN PLATELET VOLUME 9.5 fL (9.0-12.2); MONOCYTES # (AUTO) 1.5 10^3/uL (0.0-1.0); MONOCYTES % (AUTO) 13 % (0-12); NEUTROPHILS % (AUTO) 62 % (42-75); PLATELET COUNT 282 10^3/uL (130-400); WHITE BLOOD COUNT 11.3 10^3/uL (4.3-11.0)
[2021-01-16 16:44] LABS: POTASSIUM 3.2 MMOL/L (3.6-5.0)
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
[2021-01-16 16:50] LABS: CREATININE SERUM 0.89 MG/DL (0.60-1.30)
[2021-01-16 16:54] LABS: BILIRUBIN,URINE NEGATIVE (NEGATIVE); CLARITY,URINE CLEAR; COLOR,URINE YELLOW; GLUCOSE, URINE (UA) NEGATIVE (NEGATIVE); KETONES,URINE TRACE (NEGATIVE); LEUKOCYTE ESTERASE ,URINE NEGATIVE (NEGATIVE); NITRITE,URINE NEGATIVE (NEGATIVE); PROTEIN,URINE 2+ (NEGATIVE)
[2021-01-16 17:02] LABS: BACTERIA,URINE TRACE /HPF; RBC,URINE 0-2 /HPF
[2021-01-16 17:08] LABS: AMPHETAMINE SCREEN, URINE NEGATIVE (NEGATIVE); BARBITURATE SCREEN URINE NEGATIVE (NEGATIVE); BENZODIAZEPINES SCREEN URINE NEGATIVE (NEGATIVE); CANNABINOID SCREEN, URINE NEGATIVE (NEGATIVE); COCAINE SCREEN URINE NEGATIVE (NEGATIVE); METHADONE STAT NEGATIVE (NEGATIVE); METHAMPHETAMINE SCREEN URINE S NEGATIVE (NEGATIVE); OPIATE SCREEN URINE NEGATIVE (NEGATIVE); OXYCODONE STAT NEGATIVE (NEGATIVE); PROPOXYPHENE STAT NEGATIVE (NEGATIVE); TRICYCLIC ANTIDEPRESSANTS SCRE NEGATIVE (NEGATIVE)
[2021-01-16] MEDS ORDERED: OLAN10TA3 PO (17:17)
[2021-01-16 17:19] LABS: SALICYLATE < 5.0 MG/DL (5.0-20.0)
[2021-01-16 17:22] LABS: ACETAMINOPHEN < 10 UG/ML (10-30)
[2021-01-16] MEDS ORDERED: NS IV 1000 ML 0 ML ONE (17:34)
[2021-01-16 17:35] VITALS: BP 143/97
[2021-01-16] MEDS ORDERED: LACTATED RINGERS 1,000 ML IV SCH (17:45)
== END 2021-01-16 17:35 ==
LOC: EDUNIT# 16:19 → ER 16:21
DX: F23 Brief psychotic disorder (principal); I10 Essential (primary) hypertension; F41.9 Anxiety disorder, unspecified; K21.9 Gastro-esophageal reflux disease without esophagitis; E11.9 Type 2 diabetes mellitus without complications; Z79.82 Long term (current) use of aspirin; Z79.899 Other long term (current) drug therapy
CPT/HCPCS: 80048; 80306; 81000; 84443; 85025; 99283; G0480 ×3; 36415; 80320; 80329

== ENCOUNTER 2021-06-07 08:30 | Outpatient (RCR) | payer MEDICAID ==
[2021-06-06 12:36] LABS: HEMATOCRIT 48 % (35-52); HEMOGLOBIN 15.5 g/dL (11.5-16.0); MEAN CORPUSCULAR HEMOGLOBIN 30 pg (25-34); MEAN CORPUSCULAR HGB CONC 32 g/dL (32-36); MEAN CORPUSCULAR VOLUME 93 fL (80-99); MEAN PLATELET VOLUME 9.8 fL (9.0-12.2); PLATELET COUNT 344 10^3/uL (130-400); WHITE BLOOD COUNT 10.5 10^3/uL (4.3-11.0)
[2021-06-06 12:58] LABS: ALBUMIN 4.2 GM/DL (3.2-4.5); BILIRUBIN,TOTAL 0.6 MG/DL (0.1-1.0); CALCIUM 8.9 MG/DL (8.5-10.1); CREATININE SERUM 0.81 MG/DL (0.60-1.30); POTASSIUM 3.5 MMOL/L (3.6-5.0)
[~2021-06-07 08:30] MED LIST changes: +CYCL10TA25 PO; +OLAN10TA3 PO
== END 2021-06-25 | disposition home or self-care (01) ==
LOC: LAB 08:30
PROVIDERS: ATTEND Family Medicine
DX: C20 Malignant neoplasm of rectum (principal); N39.0 Urinary tract infection, site not specified; C56.9 Malignant neoplasm of unspecified ovary; E11.9 Type 2 diabetes mellitus without complications; I10 Essential (primary) hypertension
CPT/HCPCS: 36415; 80053; 80061; 82378; 83036; 85027; 86304; 87077; 87088; 87186; 87324; 87449